=== PATIENT | female | born 1940 | race Caucasian/White ===

== ENCOUNTER 2018-04-08 17:05 | Emergency (ER) | payer OTHER ==
--- NOTE | 2018-04-08 19:52 | RAD REPORT ---
EXAM DESCRIPTION: RAD - Knee Left 2 View - 04/08/2018 7:37 pm CLINICAL HISTORY: Knee pain FINDINGS: A limited two view series was obtained. No fracture or dislocation is seen
--- NOTE | 2018-04-08 19:53 | RAD REPORT ---
EXAM DESCRIPTION: RAD - Knee Right 2 View - 04/08/2018 7:37 pm CLINICAL HISTORY: Knee pain FINDINGS: Limited two view series was obtained. No fracture or dislocation is seen A 2 centimeter area of cortical thickening involves the medial aspect of the distal femoral diaphysis . It is nonspecific but likely is benign. Follow up x-ray in 2 months is recommended to assess stabil ity
--- NOTE | 2018-04-08 20:24 | ER ---
Nurse's Notes [facility] Name: Michelle Garzon Age: 77 yrs Sex: Female : 1940 Arrival Date: 04/08/2018 Time: 17:09 Bed 6 Private MD: Ag Miller R Diagnosis: Abrasion, left knee;Abrasion, right knee Presentation: 04/08 17:25 Presenting complaint: Patient states: "I lost my balance and fell onto my knees". Pt aa5 c/o viv knee pain, denies head injury, denies LOC. 17:26 Transition of care: patient was not received from another setting of care. Onset of aa5 symptoms was April 08, 2018. Risk Assessment: Do you want to hurt yourself or someone else? Patient reports no desire to harm self or others. Initial Sepsis Screen: Does the patient meet any 2 criteria? No. Patient's initial sepsis screen is negative. Does the patient have a suspected source of infection? No. Patient's initial sepsis screen is negative. Care prior to arrival: None. 17:26 Acuity: BRE 4 aa5 17:26 Method Of Arrival: Wheelchair aa5 Historical: - Allergies: 17:27 No Known Allergies; aa5 - PMHx: 17:27 Hyperlipidemia; Hypertension; aa5 - PSHx: 17:27 None; aa5 - Immunization history:: Last tetanus immunization: unknown. - Social history:: Smoking status: Patient uses tobacco products, smokes one-half pack cigarettes per day, Patient/guardian denies using alcohol, street drugs, The patient lives with family. - Ebola Screening: : No symptoms or risks identified at this time. - Family history:: not pertinent. - Hospitalizations: : No recent hospitalization is reported. Screenin:06 Abuse screen: Denies threats or abuse. Denies injuries from another. Nutritional bp screening: No deficits noted. Tuberculosis screening: No symptoms or risk factors identified. Fall Risk Fall in past 12 months (25 points). No secondary diagnosis (0 pts). No IV (0 pts). Ambulatory Aid- None/Bed Rest/Nurse Assist (0 pts). Gait- Normal/Bed Rest/Wheelchair (0 pts) Mental Status- Oriented to own ability (0 pts). Total Albrecht Fall Scale indicates Low Risk Score (25-44 pts). Fall prevention measures have been instituted. Side Rails Up X 2 Placed close to Nursing Station Frequent Obs/Assesments occuring As available Patient and Family Educated on Fall Prevention Program and strategies. Assessment: 19:00 General: Appears in no apparent distress. comfortable, Behavior is calm, cooperative, bp appropriate for age. Pain: Complains of pain in right knee and left knee. Neuro: Level of Consciousness is awake, alert, obeys commands, Oriented to person, place, time, situation, Appropriate for age. Cardiovascular: No deficits noted. Respiratory: Airway is patent Respiratory effort is even, unlabored, Respiratory pattern is regular, symmetrical. GI: No signs and/or symptoms were reported involving the gastrointestinal system. : No signs and/or symptoms were reported regarding the genitourinary system. EENT: No deficits noted. Derm: No deficits noted. Musculoskeletal: Circulation, motion, and sensation intact. Range of motion: intact in all extremities. 20:48 Reassessment: PT D/C HOME VIA W/C, DX WITH KNEE ABRASIONS. bp Vital Signs: 17:27 BP 136 / 48; Pulse 66; Resp 16 S; Temp 97.8(TE); Pulse Ox 98% on R/A; Weight 68.04 kg aa5 (R); Height 5 ft. 4 in. (162.56 cm) (R); Pain 3/10; 19:00 BP 131 / 66; Pulse 76; Resp 16; Pulse Ox 98% ; bp 20:30 BP 137 / 67; Pulse 75; Resp 14; Pulse Ox 98% ; bp 17:27 Body Mass Index 25.75 (68.04 kg, 162.56 cm) aa5 ED Course: 17:09 Patient arrived in ED. mr 17:09 Ag Miller MD is Private Physician. mr 17:26 Triage completed. aa5 17:26 Arm band placed on. aa5 18:59 La Nix MD is Attending Physician. ma2 19:02 Davi Gregg, BLU is Primary Nurse. bp 19:07 Patient has correct armband on for positive identification. Bed in low position. Call bp light in reach. Side rails up X2. 19:32 Knee Left 2 View XRAY In Process Unspecified. EDMS 19:32 Knee Right 2 View XRAY In Process Unspecified. EDMS 20:30 No provider procedures requiring assistance completed. Patient did not have IV access bp during this emergency room visit. Wound care: to abrasion, located on right knee and left knee was cleaned with Hibiclens, dressed with Neosporin. Administered Medications: No medications were administered Outcome: 20:24 Discharge ordered by . blue 20:50 Discharged to home via wheelchair, with family. bp 20:50 Condition: stable 20:50 Discharge instructions given to patient, family, Instructed on discharge instructions, follow up and referral plans. Demonstrated understanding of instructions, follow-up care. 20:50 Patient left the ED. bp Signatures: Dispatcher [employer] EDCO April Bailon Audri, RN RN aa5 Davi Gregg RN RN bp La Nix MD MD ma2
--- NOTE | 2018-04-08 20:24 | EDPHYS ---
Physician Documentation [facility] Name: Michelle Garzon Age: 77 yrs Sex: Female : 1940 Arrival Date: 04/08/2018 Time: 17:09 Bed 6 Private MD: Ag Miller R ED Physician La Nix HPI: 04/08 20:20 This 77 yrs old Female presents to ER via Wheelchair with complaints of Fall ma2 Injury. 20:20 Details of fall: The patient fell from an upright position. Onset: The symptoms/episode ma2 began/occurred suddenly, 2 day(s) ago. Associated injuries: The patient sustained both knees. Severity of symptoms: At their worst the symptoms were mild, in the emergency department the symptoms have improved. The patient has experienced similar episodes in the past. tripped, mechanical fall abd to walk now . Historical: - Allergies: 17:27 No Known Allergies; aa5 - PMHx: 17:27 Hyperlipidemia; Hypertension; aa5 - PSHx: 17:27 None; aa5 - Immunization history:: Last tetanus immunization: unknown. - Social history:: Smoking status: Patient uses tobacco products, smokes one-half pack cigarettes per day, Patient/guardian denies using alcohol, street drugs, The patient lives with family. - Ebola Screening: : No symptoms or risks identified at this time. - Family history:: not pertinent. - Hospitalizations: : No recent hospitalization is reported. ROS: 20:20 Constitutional: Negative for fever, chills, and weight loss, ENT: Negative for injury, ma2 pain, and discharge, Neck: Negative for injury, pain, and swelling, Cardiovascular: Negative for chest pain, palpitations, and edema. 20:20 MS/extremity: Positive for abrasion, pain, tenderness. 20:20 All other systems are negative. Exam: 20:20 Constitutional: This is a well developed, well nourished patient who is awake, alert, ma2 and in no acute distress. Head/Face: Normocephalic, atraumatic. Chest/axilla: Normal chest wall appearance and motion. Nontender with no deformity. No lesions are appreciated. Cardiovascular: Regular rate and rhythm with a normal S1 and S2. No gallops, murmurs, or rubs. Normal PMI, no JVD. No pulse deficits. Respiratory: Lungs have equal breath sounds bilaterally, clear to auscultation and percussion. No rales, rhonchi or wheezes noted. No increased work of breathing, no retractions or nasal flaring. Abdomen/GI: Soft, non-tender, with normal bowel sounds. No distension or tympany. No guarding or rebound. No evidence of tenderness throughout. Back: No spinal tenderness. No costovertebral tenderness. Full range of motion. MS/ Extremity: Pulses equal, no cyanosis. Neurovascular intact. Full, normal range of motion. Neuro: Awake and alert, GCS 15, oriented to person, place, time, and situation. Cranial nerves II-XII grossly intact. Motor strength 5/5 in all extremities. Sensory grossly intact. Cerebellar exam normal. Normal gait. 20:20 Musculoskeletal/extremity: bilateral knee abrasion able to range both and all joints . Vital Signs: 17:27 BP 136 / 48; Pulse 66; Resp 16 S; Temp 97.8(TE); Pulse Ox 98% on R/A; Weight 68.04 kg aa5 (R); Height 5 ft. 4 in. (162.56 cm) (R); Pain 3/10; 19:00 BP 131 / 66; Pulse 76; Resp 16; Pulse Ox 98% ; bp 20:30 BP 137 / 67; Pulse 75; Resp 14; Pulse Ox 98% ; bp 17:27 Body Mass Index 25.75 (68.04 kg, 162.56 cm) aa5 MDM: 19:00 Patient medically screened. ma2 20:20 Differential diagnosis: abrasion, contusion, fracture, laceration, sprain. Data ma2 reviewed: vital signs, nurses notes, lab test result(s). Counseling: I had a detailed discussion with the patient and/or guardian regarding: the historical points, exam findings, and any diagnostic results supporting the discharge/admit diagnosis, the presence of at least one elevated blood pressure reading (>120/80) during this emergency department visit, the need for outpatient follow up. Response to treatment: the patient's symptoms have resolved after treatment. 04/08 19:05 Order name: Knee Left 2 View XRAY; Complete Time: 20:13 bp 04/08 19:05 Order name: Knee Right 2 View XRAY; Complete Time: 20:13 bp 04/08 20:24 Order name: Dressing - Wound: both knees, with antibiotics ointment, clean with ma2 chlorhexidine; Complete Time: 20:48 Administered Medications: No medications were administered Disposition: 04/08/18 20:24 Discharged to Home. Impression: Abrasion, left knee, Abrasion, right knee. - Condition is Stable. - Medication Reconciliation Form, Thank You Letter, Antibiotic Education, Prescription Opioid Use form. - Follow up: Private Physician; When: Tomorrow; Reason: Continuance of care. - Problem is new. - Symptoms are unchanged. Signatures: Dispatcher [employer] EDMS Amber Castellano RN RN aa5 Davi Gregg RN RN bp La Nix MD MD ma2 Corrections: (The following items were deleted from the chart) 20:50 20:24 04/08/2018 20:24 Discharged to Home. Impression: Abrasion, left knee; Abrasion, bp right knee. Condition is Stable. Forms are Medication Reconciliation Form, Thank You Letter, Antibiotic Education, Prescription Opioid Use. Follow up: Private Physician; When: Tomorrow; Reason: Continuance of care. Problem is new. Symptoms are unchanged. ma2
== END 2018-04-08 20:50 | disposition home or self-care (01) ==
LOC: ER 17:05
DX: S80.212A Abrasion, left knee, initial encounter (principal); S80.211A Abrasion, right knee, initial encounter; W18.39XA Other fall on same level, initial encounter; F17.210 Nicotine dependence, cigarettes, uncomplicated
CPT/HCPCS: 99283

== ENCOUNTER 2018-04-24 09:10 | Day surgery (SDC) | payer OTHER ==
--- NOTE | 2018-04-24 12:39 | RAD REPORT ---
EXAM DESCRIPTION: CTSpine Lumbar Wo Con04/24/2018 11:16 am CLINICAL HISTORY: Leg radiculopathy. L1 are compression fracture. COMPARISON: None TECHNIQUE: Computed axial tomography lumbar spine was obtained with coronal and sagittal reconstruct ion. 10 cc 200 Isovue was administered into the thecal sac All CT scans are performed using dose optimization technique as appropriate and may include automated exposure control or mA/KV adjustment according to patient size. FINDINGS: Cement has been placed into a subacute mild compression fracture the L1 vertebral body. Re tropulsion of fracture fragment into the spinal canal is not present. Minimal disc bulge is present L1-2. Small disc bulge is present at L2-3 mildly encroach upon the thecal sac. Mild ligamentum flavum and f acet hypertrophy is seen. Disc bulge and facet hypertrophy is present L3-4 mildly encroach upon the thecal sac. Mild narrowing left neural foramina is seen. Disc bulge, osteophytes, ligamentum flavum and set hypertrophy is present at L4-5. The thecal sac kandis sures 10.5 millimeters. Lateral recesses are narrowed. Moderate narrowing of the neural foramina bila terally is seen. Disc is thinned. Vacuum phenomena is present. Left ryan sacralization L5-S1. Disc bulge with vacuum phenomena is seen. Annular fissure is noted. Di sc bulge with facet hypertrophy is present. Thecal sac is mildly narrowed. Moderate narrowing the mirta ral foramina is noted. 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 Moderate bilateral didi inal stenosis is seen. Spondylosis L5-S1 resulting in moderate bilateral foraminal stenosis.
--- NOTE | 2018-04-24 14:45 | RAD REPORT ---
EXAM DESCRIPTION: RAD - Myelography Lumbar - 04/24/2018 11:18 am CLINICAL HISTORY: Radiculopathy. COMPARISON: None. TECHNIQUE: The risks, benefits and alternatives to the procedure were explained to the patient and i nformed consent obtained. The patient was placed prone into the fluoroscopy suite. The skin and subcutaneous tissues were anest hetized with lidocaine. Under fluoroscopic guidance a 22-gauge spinal needle was advanced into the th ecal sac at the L2-L3 level. 10 mL 200 Isovue was administered into the thecal sac. Frontal, oblique and lateral fluoroscopic spot images of the lumbar spine were obtained. The patient then left for the CT department. The patient experienced no immediate complication. Fluoroscopy time of 1.7 minutes. 5 fluoroscopic spot images were obtained. IMPRESSION: Lumbar myelogram.
== END 2018-04-24 13:57 | disposition home or self-care (01) ==
LOC: DS 09:10
PROVIDERS: ATTEND Specialist
DX: M54.5 Low back pain (principal); M48.062 Spinal stenosis, lumbar region with neurogenic claudication
CPT/HCPCS: 62304; 72131

== ENCOUNTER 2018-10-14 06:54 | Day surgery (SDC) | payer OTHER ==
[2018-10-14] MEDS ORDERED: NA CHLORIDE 0.9% 500 ML ONE (07:25)
[2018-10-14] MEDS ORDERED: LIDOCAINE 2% MPF 5 ML VIAL ONE ×3 (07:25→08:45)
[2018-10-14] MEDS ORDERED: BUPIVACAINE 0.25% PF 10 ML VIAL ONE (07:25)
[2018-10-14] MEDS ORDERED: PHENYLEPHRINE 10% OPTH 5ML ONE (07:25)
[2018-10-14] MEDS ORDERED: CYCLOPENTOLATE 1% OPTH 2 ML ONE (07:25)
[2018-10-14] MEDS ORDERED: TETRACAINE HCL 0.5% 2ML OPTH ONE (07:26)
[2018-10-14] MEDS ORDERED: CYCLOPENTOLATE 1% OPTH 2 ML OPTH ONE ×2 (07:39→07:44)
[2018-10-14] MEDS ORDERED: PHENYLEPHRINE 10% OPTH 5ML OPTH ONE ×2 (07:39→07:44)
[2018-10-14] MEDS ORDERED: NS 0.9% VIAL 10 ML ONE (08:11)
[2018-10-14] MEDS: EPINEPHRINE/PF 1 MG/ML AMP ONE ×2 (08:12→08:24)
[2018-10-14] MEDS: BALANCED SALT IRRIG PLAIN 500 ML BTL IRR ONE ×2 (08:12→08:24)
[2018-10-14] MEDS: DUOVISC 1 KIT OPTH ONE ×2 (08:12→08:24)
[2018-10-14] MEDS: MOXIFLOXACIN HCL 10 DROPS/ML **OR USE OPTH ONE ×2 (08:12→08:24)
[2018-10-14] MEDS ORDERED: PROPOFOL 200 MG/20 ML VIAL IV ONE (08:27)
[2018-10-14] MEDS ORDERED: Phenylephrine HCl 10 MG/ML 1 ML VIAL ONE (09:04)
--- NOTE | 2018-10-14 09:12 | P.BOP ---
Preoperative diagnosis: Nuclear sclerotic cataract OD Postoperative diagnosis: Same Primary procedure: Phacoemulsification with IOL OD Estimated blood loss: None Anesthesia: Local (Subtenon's infusion with anesthesia for cataract surgery) Complications: None Implants: SN60WF +23.0 Transferred to: Other (Day surgery) Condition: Good
--- NOTE | 2018-10-14 21:01 | OP ---
Date of Procedure: 10/14/2018 Surgeon: Lucy Cerna MD Preoperative Diagnosis: Nuclear sclerotic cataract OD (right eye). Operation Performed: Phacoemulsification with intraocular lens implant, right eye. Anesthesia: 1. Yoandy Castillo CRNA. 2. Mark Ag MD. Anesthesia per cataract surgery. Complications: None. Description Of Procedure: In day surgery, the patient was prepped with Betadine and draped. A conjunctival incision was made in the inferior nasal quadrant with Sam scissors. A sub-Tenon block consisting of a 1:1 mixture of 2% Xylocaine and 0.25% bupivacaine was placed through the conjunctival incision with a blunt cannula. A [place] balloon was placed over the eye and the patient was transferred to the operating room. In the operating room the patient was prepped and draped in the usual sterile fashion for ophthalmic surgery. A lid speculum was placed in the right eye. Two paracentesis sites were made superiorly and inferiorly in the limbal cornea. Viscoat was placed in the anterior chamber and a crescent blade was used to make a corneal groove and tunnel, and a keratome was used to enter the anterior chamber. Provisc was placed in the anterior chamber and a 360 degree capsulotomy was performed with a cystitome. The lens was hydrodissected with BSS and rotated freely. The lens was removed with a stop and chop technique. An 11.56 phaco CDE was used to remove the lens. Residual cortex was removed with the irrigation and aspiration. Provisc was placed in the capsular bag. An SN60WF +23.0 lens was placed in the capsular bag without complications. Irrigation and aspiration was used to remove residual viscoelastic. The paracentesis sites were hydrated with BSS. The wound and paracentesis sites were inspected and found to be watertight. Vigamox 0.07 cc was placed intracamerally at the end of the procedure. The eye was irrigated with balanced salt solution. The eye was patched with a soft cotton patch and Forbes metal shield. The patient was returned to day surgery in good condition. Comments: The lens was slightly loose. Discharge Instructions: Ms. Garzon is discharged to home in good condition and is to follow up with Dr. Cerna in the morning. MARCIAL/LEANNE Voice ID: [id number] Report ID: [id number] MTDD
== END 2018-10-14 09:30 | disposition home or self-care (01) ==
LOC: OR 06:54
PROVIDERS: ATTEND Ophthalmology Retina Specialist
PROC: 08RJ3JZ Replacement of Right Lens with Synthetic Substitute, Percutaneous Approach (ICD-10-PCS; principal; 2018-10-14 08:30)
DX: H25.11 Age-related nuclear cataract, right eye (principal); E78.00 Pure hypercholesterolemia, unspecified; M06.9 Rheumatoid arthritis, unspecified; Z79.899 Other long term (current) drug therapy; Z79.82 Long term (current) use of aspirin
CPT/HCPCS: 66984; J2704; J0171; J2370

== ENCOUNTER 2020-01-07 09:07 | Day surgery (SDC) | payer OTHER ==
[2020-01-06 11:25] LABS: Absolute Lymphocytes (CBC) 1.4 K/uL (0.7-4.9); Basophils % 0.8 % (0-1.3); Lymphocytes % 19.8 % (15.3-44.8); MPV 9.1 fL (7.6-11.3); RBC Red Blood Cell Count 4.48 M/uL (3.86-4.86)
[2020-01-06 11:43] LABS: Potassium 4.2 mmol/L (3.5-5.1)
[2020-01-07] MEDS ORDERED: Ringers Lactate 1,000 ML IV ONE ×2 (09:19→10:42)
[2020-01-07] MEDS: CEFAZOLIN/SWI 1gm 1 GM/10 ML SYR ONE ×2 (09:43→10:00)
[2020-01-07] MEDS ORDERED: MIDAZOLAM HCL 2 MG/2 ML INJ ONE (09:45)
[2020-01-07] MEDS ORDERED: propofoL 200 MG/20 ML VIAL IV ONE (09:45)
[2020-01-07] MEDS ORDERED: LIDOCAINE 2% MPF 5 ML VIAL ONE (09:45)
[2020-01-07] MEDS ORDERED: FENTANYL CITR 100 MCG/2 ML ONE (10:06)
[2020-01-07] MEDS ORDERED: dexAMETHasone 10 MG/ML VIAL ONE (10:10)
[2020-01-07] MEDS ORDERED: EPHEDRINE SULF 50 MG/ML VIAL ONE (10:13)
[2020-01-07 11:35] VITALS: BP 94/51; TEMP 97.4; O2SAT 95
[2020-01-07] MEDS ORDERED: TRAMADOL 37.5mg/APAP 325mg PER TAB ONE (11:35)
--- NOTE | 2020-01-07 13:50 | OP ---
Date of Procedure: 01/07/2020 Surgeon: Niranjan Pool MD Preoperative Diagnosis: Inflamed cyst on left axilla. Postoperative Diagnosis: Inflamed cyst on left axilla. Procedure: Wide excision of left axillary mass 7 x 4 cm with layered closure. Estimated Blood Loss: Minimal. Specimen: C and S from the fluid inside the cyst and the cyst itself. Findings: As above. Anesthesia: General. Complications: None. Drains: quarter-inch [place]. Patient tolerated the procedure in stable condition, taken to Recovery in good general condition. Procedure In Detail: Patient was brought to the OR and placed in supine position. General anesthesi a began. Patient was prepped and draped in the usual sterile fashion, then Marcaine 0.5% was infiltr ated locally for postop pain control. 15 blade was used to make approximately a 7 x 4 cm incision to excise the entire cyst that was bulging out of the skin surface and with normal skin margins. The i ncision was 7 x 4 cm. When down to the deep subcutaneous tissue, entire cyst excised in 1 piece. Th en opened side table and cultures were done on the purulence material inside the cyst. Then wound wa s irrigated, bleeding controlled with cautery. Flaps created and then a Kevin drain quarter-inch p laced and secured with 3-0 nylon. 2-0 chromic used to approximate the subcutaneous tissue and 3-0 ny corine used to loosely close the skin. Sterile dressing applied. Patient was awakened and taken to the recovery in good general condition. Discharge Note: Patient will go to Day Surgery and home when stable. Disposition: Home. Condition: Stable. Discharge Instructions: Resume home medications and diet. Activity as tolerated. No heavy lifting. Remove outer dressing in 2 days. Shower. Dry gauze to wound daily. Follow up in my office in 1 w tul[place]. Call for appointment. Ultracet 1 tablet p.o. q.4 p.r.n. pain. The patient has antibiotics at home. /MODL Voice ID: [id number] Report ID: [id number]
== END 2020-01-07 11:50 | disposition home or self-care (01) ==
LOC: OR 09:07
PROVIDERS: ATTEND Surgery
PROC: 0HBCXZZ Excision of Left Upper Arm Skin, External Approach (ICD-10-PCS; principal; 2020-01-07 10:00)
DX: L72.0 Epidermal cyst (principal); L03.112 Cellulitis of left axilla; M06.9 Rheumatoid arthritis, unspecified; I10 Essential (primary) hypertension; Z79.82 Long term (current) use of aspirin; Z79.899 Other long term (current) drug therapy
CPT/HCPCS: 11406; 12032; 87070; 85025; 80048; 36415; 87205; 88304; 87075; U0002; J2704; J2250; J3010; J1100; J0690; J7120 ×2

== ENCOUNTER 2022-08-13 15:24 | Emergency (ER) | payer OTHER ==
--- OUTSIDE RECORDS SUMMARY | 2022-08-13 15:29 | XMS REPORT | Continuity of Care Document ---
:1940 Author Organization [facility] [place] [facility] t Address [address] [place] [address] Care Team Providers Name Role Phone JEFFY HERNANDEZ Primary Care Physician Unavailable AMBREEN ORTIZ Attending Clinician Unavailable Ambreen Ortiz MD Attending Clinician Doctor Unassigned, Kinder Attending Clinician Unavailable MINNIE DOWLING Attending Clinician Unavailable RADIOLOGY Attending Clinician Unavailable Radiology Attending Clinician Unavailable JUSTA FOSTER Attending Clinician Unavailable Radha Vinson OT Attending Clinician Unavailable Justa Foster MD Attending Clinician JEFFY HERNANDEZ Admitting Clinician Unavailable Payers Payer Name Policy Type Policy Number Effective Date Expiration Date Jessica cruz MEDICARE PART A [id number] 2006 \T\ B 00:00:00 Problems Condition Condition Condition Status Onset Resolution Last Treating Co mments Source Name Details Category Date Date Treatment Clinician Date 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 Uni vers of right of right 08-05 ity [place] subcl[place]cl[place] artery artery 00 [facility] Branch Bilateral Bilateral Disease Active 2021-07 Uni vers carotid carotid 1- ity of artery artery 00:00: [place] stenosis stenosis 00 Medica l Branch Cigarette Cigarette Disease Active Uni vers smoker smoker 8 ity of 00:00: [place] 00 Medical Branch Bruit of Bruit of Disease Active Unive rs right right 8- ity of carotid carotid 00:00: [place] artery artery 00 Medical Branch PAD PAD Disease Active Univers (periphera (periphera 02-16 it y of l artery l artery 00:00: [place] disease) disease) 00 Medica l Branch Murmur Murmur Disease Active Univers 8-04 ity of 00:00: [place] 00 Medical Branch 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 00 Medica l Branch 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 8-04 it y of artery artery 00:00: [place] occlusion occlusion 00 Medi paul Branch PAC PAC Disease Active Univers (premature (premature 8-04 it y of atrial atrial 00:00: [place] contractio contractio 00 Me dical n) n) Branch Coronary Coronary Disease Active Unive rs artery artery 8-04 ity of calcificat calcificat 00:[place] ion ion 00 [facility] Unequal Unequal Disease Active Univers blood blood 8-04 ity of pressure pressure 00:00: [place] in upper in upper 00 Medica l extremitie extremitie Br anch s s Decreased Decreased Disease Active Uni vers range of range of 7-11 ity of motion of motion of 00:[place] finger of finger of 00 Medi paul right hand right hand Br anch Allergies, Adverse Reactions, Alerts Allergy Allergy Status Severity Reaction(s) Onset Inactive Treating Comm ents Source Name Type Date Date Clinician NO KNOWN Drug Active [facility] ALLERGIE Class ity of [facility] Social History Social Habit Start Date Stop Date Quantity Comments Source History of Cigarette Smoker Universi ty of tobacco use [facility] Exposure to 2022-05-26 2022-06-05 Not sure [facility] SARS-CoV-2 00:00:00 12:46:00 [facility] (event) Branch Tobacco use and 2022-02-16 2022-02-16 Smokeless tobacco Un iversity of exposure 00:00:00 00:00:00 non-user [facility] Sex Ass[birth year] At [birth year] Universit y of 00:00:00 00:00:00 [facility] Smoking Status Start Date Stop Date Source Smokes tobacco daily 2022-02-16 00:00:00 Univers ity of [facility] Medications Ordered Filled Start Stop Current Ordering Indication Dosage Frequency Signature Comments Components Source Medication Medication Date Date Medication? Clinician (SIG) Name Name fernanda Yes [id number] 40mg Take 1 Univers n 40 mg 9-26 tablet by ity of tablet 00:00: mouth at [place] 00 bedtime. Medical Branch metoprolol Yes [id number] 25mg Take 1 Univers succinate 9-26 tablet by ity o f XL 25 mg 24 00:00: [place] hr tablet 00 the morning. Branch atorvastati Yes [id number] 40mg Take 1 Univers n 40 mg 9-26 tablet by ity of tablet 00:00: mouth at [place] 00 bedtime. Medical Branch metoprolol Yes [id number] 25mg Take 1 Univers succinate 9-26 tablet by ity o f XL 25 mg 24 00:00: [place] hr tablet the morning. Branch atorvastati Yes [id number] 40mg Take 1 Univers n 40 mg 9-26 tablet by ity of tablet 00:00: mouth at [place] 00 bedtime. Medical Branch metoprolol Yes [id number] 25mg Take 1 Univers succinate 9-26 tablet by ity o f XL 25 mg 24 00:00: [place] hr tablet the morning. Branch atorvastati Yes [id number] 40mg Take 1 Univers n 40 mg 9-26 tablet by ity of tablet 00:00: mouth at [place] 00 bedtime. Medical Branch metoprolol Yes [id number] 25mg Take 1 Univers succinate 9-26 tablet by ity o f XL 25 mg 24 00:00: [place] hr tablet the morning. Branch atorvastati Yes [id number] 40mg Take 1 Univers n 40 mg 9-26 tablet by ity of tablet 00:00: mouth at [place] 00 bedtime. Medical Branch metoprolol Yes [id number] 25mg Take 1 Univers succinate 9-26 tablet by ity o f XL 25 mg 24 00:00: [place] hr tablet the morning. Branch atorvastati Yes [id number] 40mg Take 1 Univers n 40 mg 9-26 tablet by ity of tablet 00:00: mouth at [place] 00 bedtime. Medical Branch metoprolol Yes [id number] 25mg Take 1 Univers succinate 9-26 tablet by ity o f XL 25 mg 24 00:00: [place] hr tablet 00 the Medical morning. Branch aspirin 81 2021-0 Yes [id number] 81mg Take 1 Univers mg chewable 9-20 tablet by ity of tablet 00:00: mouth in [place] 00 the Medical morning. Branch aspirin 81 2021-0 Yes [id number] 81mg Take 1 Univers mg chewable 9-20 tablet by ity of tablet 00:00: mouth in [place] 00 the Medical morning. Branch aspirin 81 2021-0 Yes [id number] 81mg Take 1 Univers mg chewable 9-20 tablet by ity of tablet 00:00: mouth in [place] 00 the Medical morning. Branch aspirin 81 2021-0 Yes [id number] 81mg Take 1 Univers mg chewable 9-20 tablet by ity of tablet 00:00: mouth in [place] 00 the Medical morning. Branch aspirin 81 2021-0 Yes [id number] 81mg Take 1 Univers mg chewable 9-20 tablet by ity of tablet 00:00: mouth in [place] 00 the Medical morning. Branch aspirin 81 0 Yes [id number] 81mg Take 1 Univers mg chewable 9-20 tablet by ity of tablet 00:00: mouth in [place] 00 the Medical morning. Branch aspirin 81 2021-0 Yes [id number] 81mg Take 1 Univers mg chewable 9-20 tablet by ity of tablet 00:00: mouth in [place] 00 the Medical morning. Branch metoprolol 2021- Yes [id number] 25mg Take 1 Univers succinate 9-20 tablet by ity o f XL 25 mg 24 00:00: [place] hr tablet 00 the Medical morning. Branch atorvastati Yes [id number] 40mg Take 1 Univers n 40 mg 9-20 tablet by ity of tablet 00:00: mouth at [place] [address] bedtime. Medical Branch metoprolol 2021-2021- No [id number] 25mg Take 1 Univers succinate 9-20 - tablet by ity of XL 25 mg 24 00:00: 00:00 [place] hr tablet 00 :00 the Medical morning. Branch atorvastati 2021-2021- No [id number] 40mg Take 1 Univers n 40 mg 9-20 - tablet by ity of tablet 00:00: 00:00 mouth at [place] 00 :00 bedtime. Medical Branch SIMVASTATIN 2022-0 2- No Take by Un melissa ORAL 02-16 mouth. ity of 15:10: 00:00 [place] 54 :00 Medical Branch Dose 2022-0 No Unknown 8 00:00: 00 Dose 2022-0 No Unknown 8 00:00: 00 Dose 2022-0 No Unknown 02-14 00:00: 00 Dose 2022-0 No Unknown 02-14 00:00: 00 LOSARTAN 2022-0 No POTASSIUM 7-25 25MG TAB 00:00: 00 LOSARTAN 2022-0 No POTASSIUM 7-25 25MG TAB 00:00: 00 &lt 2022-0 No 25 7- 00:00: 00 &lt 2022-0 No 25 7 00:00: 00 &lt 2022-0 No 20 7- 00:00: 00 &lt 2022-0 No 20 7- 00:00: 00 TAKE 1 2-0 No 20 TABLET BY 7-20 MOUTH EVERY 00:00: DAY 00 TAKE 1 2-0 No 20 TABLET BY 7-20 MOUTH EVERY 00:00: DAY 00 8 TABLETS 2-0 No 25 ORALLY ONCE - A WEEK 90 00:00: DAYS 00 8 TABLETS 2022-0 No 25 ORALLY ONCE 7- A WEEK 90 00:00: DAYS 00 Dose 2022-0 No Unknown 7- 00:00: 00 &lt 2022-0 No 20 7- 00:00: 00 &lt 2022-0 No 7- 00:00: 00 &lt 2022-0 No 25 7- 00:00: 00 Dose 2022-0 No Unknown 7- 00:00: 00 Dose 2022-0 No 25 Unknown 7- 00:00: 00 &lt 2022-0 No 20 7- 00:00: 00 TAKE 1 2-0 No 20 TABLET BY 7- MOUTH EVERY 00:00: DAY 00 Dose 2022-0 No Unknown 7- 00:00: 00 &lt 2022-0 No 20 7- 00:00: 00 &lt 2022-0 No 7-06 00:00: 00 &lt 2022-0 No 25 7- 00:00: 00 Dose 2022-0 No Unknown 7- 00:00: 00 Dose 2022-0 No 25 Unknown 7- 00:00: 00 &lt 2022-0 No 20 7- 00:00: 00 TAKE 1 2022-0 No 20 TABLET BY 7-06 MOUTH EVERY 00:00: DAY 00 Dose 2022-0 No Unknown 7- 00:00: 00 &lt 2022-0 No 20 7- 00:00: 00 &lt 2022-0 No 7- 00:00: 00 &lt 2022-0 No 25 7- 00:00: 00 Dose 2022-0 No Unknown 7- 00:00: 00 Dose 2022-0 No 25 Unknown - 00:00: 00 &lt 2022-0 No 20 7- 00:00: 00 TAKE 1 2-0 No 20 TABLET BY 7- MOUTH EVERY 00:00: DAY 00 &lt 2022-0 No 6-21 00:00: 00 Dose 2022-0 No Unknown 6-21 00:00: 00 Dose 2022-0 No Unknown 6-21 00:00: 00 Dose 2022-0 No Unknown 6-21 00:00: 00 &lt 2022-0 No 6-21 00:00: 00 Dose 2022-0 No Unknown 6-21 00:00: 00 Dose 2022-0 No Unknown 6-21 00:00: 00 Dose 2022-0 No Unknown 6-21 00:00: 00 &lt 2022-0 No 6-21 00:00: 00 Dose 2022-0 No Unknown 6-21 00:00: 00 Dose 2022-0 No Unknown 6-21 00:00: 00 Dose 2022-0 No Unknown 6-21 00:00: 00 simvastatin 2022-0 Yes 20mg Take 20 mg Univers 20 mg 6-20 by mouth ity of tablet 00:00: in the [place] 00 morning. Medical Branch simvastatin 2022-0 2022- No 20mg Take 20 mg Univers 20 mg 6-20 09-20 by mouth ity of tablet 00:00: 00:00 in the [place] 00 :00 morning. Medical Branch TAKE 8 2021-0 No TABLETS BY 6-17 MOUTH EVERY 00:00: WEEK 00 TAKE 1 2021-0 No TABLET BY 6-17 MOUTH EVERY 00:00: DAY 00 TAKE 8 2022-0 No TABLETS BY 6-17 MOUTH EVERY 00:00: WEEK 00 TAKE 1 2022-0 No TABLET BY 6-17 MOUTH EVERY 00:00: DAY 00 TAKE 8 2022-0 No TABLETS BY 6-17 MOUTH EVERY 00:00: WEEK 00 TAKE 1 2022-0 No TABLET BY 6-17 MOUTH EVERY 00:00: DAY 00 Dose 2022-0 No Unknown 6-09 00:00: 00 TAKE 1 2022-0 No TABLET BY 6-09 MOUTH EVERY 00:00: DAY 00 Dose 2022-0 No Unknown 6- 00:00: 00 Dose 2022-0 No Unknown 6- 00:00: 00 TAKE 1 2022-0 No TABLET BY 6-09 MOUTH EVERY 00:00: DAY 00 Dose 2022-0 No Unknown 6- 00:00: 00 Dose 2022-0 No Unknown 6-09 00:00: 00 TAKE 1 2022-0 No TABLET BY 6-09 MOUTH EVERY 00:00: DAY 00 Dose 2022-0 No Unknown 6-09 00:00: 00 Dose 2022-0 No Unknown 6-06 00:00: 00 TAKE 1 2022-0 No TABLET BY 6-06 MOUTH EVERY 00:00: DAY 00 Dose 2022-0 No Unknown 6-06 00:00: 00 TAKE 1 2022-0 No TABLET BY 6-06 MOUTH EVERY 00:00: DAY 00 Dose 2022-0 No Unknown 6-06 00:00: 00 TAKE 1 2022-0 No TABLET BY 6-06 MOUTH EVERY 00:00: DAY 00 Dose 2022-0 No Unknown 5-30 00:00: 00 Dose 2022-0 No Unknown 5-30 00:00: 00 Dose 2022-0 No Unknown 5-30 00:00: 00 Dose 2022-0 No Unknown 5-26 00:00: 00 Dose 2022-0 No Unknown 5-26 00:00: 00 Dose 2022-0 No Unknown 5-26 00:00: 00 Dose 2022-0 No Unknown 5-25 00:00: 00 Dose 2022-0 No Unknown 5-25 00:00: 00 Dose 2022-0 No Unknown 5-25 00:00: 00 Xatmep 2.5 2022-0 No 8mg/mL mg/mL oral 5-17 solution 00:00: 00 Dose 2022-0 No Unknown 5-17 00:00: 00 Dose 2022-0 No Unknown 5-17 00:00: 00 Dose 2022-0 No Unknown 5-17 00:00: 00 Dose 2022-0 No Unknown 5-17 00:00: 00 Xatmep 2.5 2022-0 No 8mg/mL mg/mL oral 5-17 solution 00:00: 00 Dose 2022-0 No Unknown 5-17 00:00: 00 Dose 2022-0 No Unknown 5-17 00:00: 00 Dose 2022-0 No Unknown 5-17 00:00: 00 Dose 2022-0 No Unknown 5-17 00:00: 00 Xatmep 2.5 2-0 No 8mg/mL mg/mL oral 5-17 solution 00:00: 00 Dose 2-0 No Unknown 5-17 00:00: 00 Dose 2-0 No Unknown 5-17 00:00: 00 Dose 2-0 No Unknown 5-17 00:00: 00 Dose 2-0 No Unknown 5-17 00:00: 00 methotrexat 2022-0 Yes GIVE 8 Univ ers e 2.5 mg 5-08 TABLETS BY ity o f tablet 00:00: MOUTH ONCE Medical Branch methotrexat 2022-0 Yes GIVE 8 Univ ers e 2.5 mg 5-08 TABLETS BY ity o f tablet 00:00: MOUTH ONCE Medical Branch methotrexat 2022-0 Yes GIVE 8 Univ ers e 2.5 mg 5-08 TABLETS BY ity o f tablet 00:00: MOUTH ONCE A Medical Branch methotrexat 2022-0 Yes GIVE 8 Univ ers e 2.5 mg 5-08 TABLETS BY ity o f tablet 00:00: MOUTH ONCE Medical Branch methotrexat 2022-0 Yes GIVE 8 Univ ers e 2.5 mg 5-08 TABLETS BY ity o f tablet 00:00: MOUTH ONCE A Medical Branch methotrexat 2022-0 Yes GIVE 8 Univ ers e 2.5 mg 5-08 TABLETS BY ity o f tablet 00:00: MOUTH ONCE A Medical Branch methotrexat 2022-0 Yes GIVE 8 Univ ers e 2.5 mg 5-08 TABLETS BY ity o f tablet 00:00: MOUTH ONCE A [facility] methotrexat 2021-0 Yes GIVE 8 Univ ers e 2.5 mg 5-08 TABLETS BY ity o f tablet 00:00: MOUTH ONCE [place] [facility] losartan 25 2-0 No 1mg mg tablet 3-22 00:00: 00 simvastatin 2-0 No 1mg 20 mg 3-22 tablet 00:00: 00 Dose 2022-0 No Unknown 3-22 00:00: 00 Dose 2022-0 No Unknown 3-22 00:00: 00 Dose 2022-0 No Unknown 3-22 00:00: 00 Dose 2-0 No Unknown 3-22 00:00: 00 Dose 2-0 No Unknown 3-22 00:00: 00 Dose 2-0 No Unknown 3-22 00:00: 00 Dose 2-0 No Unknown 3-22 00:00: 00 losartan 25 2-0 No 1mg mg tablet 3-22 00:00: 00 simvastatin 2-0 No 1mg 20 mg 3-22 tablet 00:00: 00 Dose 2-0 No Unknown 3-22 00:00: 00 losartan 25 2-0 No 1mg mg tablet 3-22 00:00: 00 simvastatin 2-0 No 1mg 20 mg 3-22 tablet 00:00: 00 Dose 2-0 No Unknown 3-22 00:00: 00 Dose 2-0 No Unknown 3-22 00:00: 00 Dose 2-0 No Unknown 3-22 00:00: 00 Dose 2022-0 No Unknown 3-22 00:00: 00 Dose 2022-0 No Unknown 3-22 00:00: 00 Dose 2022-0 No Unknown 3-22 00:00: 00 Dose 2022-0 No Unknown 3-22 00:00: 00 Dose 2022-0 No Unknown 3-22 00:00: 00 Dose 2-0 No Unknown 3-22 00:00: 00 Dose 2-0 No Unknown 3-22 00:00: 00 Dose 2-0 No Unknown 3-22 00:00: 00 Dose 2022-0 No Unknown 3-22 00:00: 00 Dose 2022-0 No Unknown 3-22 00:00: 00 Dose 2-0 No Unknown 2-28 00:00: 00 Dose 2022-0 No Unknown 2-28 00:00: 00 Dose 2022-0 No Unknown 2-28 00:00: 00 Dose 2022-0 No Unknown 2-28 00:00: 00 Dose 2022-0 No Unknown 2-28 00:00: 00 Dose 2022-0 No Unknown 2-28 00:00: 00 Dose 2022-0 No Unknown 2-28 00:00: 00 Dose 2022-0 No Unknown 2-28 00:00: 00 Dose 2022-0 No Unknown 2-28 00:00: 00 Dose 2022-0 No Unknown 2-28 00:00: 00 Dose 2022-0 No Unknown 2-28 00:00: 00 Dose 2022-0 No Unknown 2-28 00:00: 00 Dose 2022-0 No Unknown 2-28 00:00: 00 Dose 2022-0 No Unknown 2-28 00:00: 00 Dose 2022-0 No Unknown 2-28 00:00: 00 Dose 2022-0 No Unknown 2-15 00:00: 00 Dose 2022-0 No Unknown 2-15 00:00: 00 Dose 2022-0 No Unknown 2-15 00:00: 00 Dose 2022-0 No Unknown 2-15 00:00: 00 Dose 2022-0 No Unknown 2-15 00:00: 00 Dose 2022-0 No Unknown 2-15 00:00: 00 Dose 2021-0 No Unknown 8-19 00:00: 00 Dose 2021-0 No Unknown 8-19 00:00: 00 Dose 2021-0 No Unknown 8-19 00:00: 00 Dose 2021-0 No Unknown 8-19 00:00: 00 Dose 2021-0 No Unknown 8-19 00:00: 00 Dose 2021-0 No Unknown 8-19 00:00: 00 Dose 2021-0 No Unknown 5-12 00:00: 00 Dose 2021-0 No Unknown 5-12 00:00: 00 Dose 2021-0 No Unknown 5-12 00:00: 00 losartan 25 2021-0 No 1mg mg tablet 2-19 00:00: 00 simvastatin 2021-0 No 1mg 20 mg 2-19 tablet 00:00: 00 losartan 25 2021-0 No 1mg mg tablet 2-19 00:00: 00 simvastatin 2021-0 No 1mg 20 mg 2-19 tablet 00:00: 00 losartan 25 2021-0 No 1mg mg tablet 2-19 00:00: 00 simvastatin 2021-0 No 1mg 20 mg 2-19 tablet 00:00: 00 cefuroxime 2020-0 No 1mg axetil 500 6-22 mg tablet 00:00: 00 losartan 25 2020-0 No 1mg mg tablet 6-22 00:00: 00 simvastatin 2020-0 No 1mg 20 mg 6-22 tablet 00:00: 00 cefuroxime 2020-0 No 1mg axetil 500 6-22 mg tablet 00:00: 00 losartan 25 2020-0 No 1mg mg tablet 6-22 00:00: 00 simvastatin 2020-0 No 1mg 20 mg 6-22 tablet 00:00: 00 cefuroxime 2020-0 No 1mg axetil 500 6-22 mg tablet 00:00: 00 losartan 25 2020-0 No 1mg mg tablet 6-22 00:00: 00 simvastatin 2020-0 No 1mg 20 mg 6-22 tablet 00:00: 00 losartan 25 2020-0 No 1mg mg tablet 5-26 00:00: 00 losartan 25 2020-0 No 1mg mg tablet 5-26 00:00: 00 losartan 25 2020-0 No 1mg mg tablet 5-26 00:00: 00 simvastatin 2020-0 No 1mg 20 mg 2-26 tablet 00:00: 00 aspirin 81 2020-0 No 1mg mg 2-26 tablet,júnior 00:00: yed release 00 simvastatin 2020-0 No 1mg 20 mg 2-26 tablet 00:00: 00 losartan 25 2020-0 No 1mg mg tablet 2-26 00:00: 00 simvastatin 2020-0 No 1mg 20 mg 2-26 tablet 00:00: 00 aspirin 81 2020-0 No 1mg mg 2-26 tablet,júnior 00:00: yed release 00 simvastatin 2020-0 No 1mg 20 mg 2-26 tablet 00:00: 00 losartan 25 2020-0 No 1mg mg tablet 2-26 00:00: 00 simvastatin 2020-0 No 1mg 20 mg 2-26 tablet 00:00: 00 aspirin 81 2020-0 No 1mg mg 2-26 tablet,júnior 00:00: yed release 00 simvastatin 2020-0 No 1mg 20 mg 2-26 tablet 00:00: 00 losartan 25 2020-0 No 1mg mg tablet 2-26 00:00: 00 Immunizations Ordered Filled Immunization Date Status Comments [facility] e Immunization Name Name influenza, seasonal 2022-04-19 Completed vaccine, 00:00:00 quadrivalent, adjuvanted, .5mL dose, preservative-free influenza, seasonal 2022-04-19 Completed vaccine, 00:00:00 quadrivalent, adjuvanted, .5mL dose, preservative-free influenza, 2021-09-12 Completed high-dose, 00:00:00 quadrivalent influenza, 2021-09-12 Completed high-dose, 00:00:00 quadrivalent influenza, 2021-09-12 Completed high-dose, 00:00:00 quadrivalent SARS-COV-2 COVID-19 2020-09-18 Completed Unive rsity of MODERNA 12+ YRS 00:00:00 [place] Med ical VACCINE Branch SARS-COV-2 COVID-19 2020-09-18 Completed Unive rsity of MODERNA 12+ YRS 00:00:00 [place] Med ical VACCINE Branch SARS-COV-2 COVID-19 2020-09-18 Completed Unive rsity of MODERNA 12+ YRS 00:00:00 [place] Med ical VACCINE Branch SARS-COV-2 COVID-19 2020-09-18 Completed Unive rsity of MODERNA 12+ YRS 00:00:00 [place] Med ical VACCINE Branch SARS-COV-2 COVID-19 2020-09-18 Completed Unive rsity of MODERNA 12+ YRS 00:00:00 [place] Med ical VACCINE Branch SARS-COV-2 COVID-19 2020-09-18 Completed Unive rsity of MODERNA 12+ YRS 00:00:00 [place] Med ical VACCINE Branch SARS-COV-2 COVID-19 2020-09-18 Completed Unive rsity of MODERNA 12+ YRS 00:00:00 [place] Med ical VACCINE Branch SARS-COV-2 COVID-19 2020-09-18 Completed Unive rsity of MODERNA 12+ YRS 00:00:00 [place] Med ical VACCINE Branch SARS-COV-2 COVID-19 2020-08-21 Completed Unive rsity of MODERNA 12+ YRS 00:00:00 [place] Med ical VACCINE Branch SARS-COV-2 COVID-19 2020-08-21 Completed Unive rsity of MODERNA 12+ YRS 00:00:00 [place] Med ical VACCINE Branch SARS-COV-2 COVID-19 2020-08-21 Completed Unive rsity of MODERNA 12+ YRS 00:00:00 [place] Med ical VACCINE Branch SARS-COV-2 COVID-19 2020-08-21 Completed Unive rsity of MODERNA 12+ YRS 00:00:00 [place] Med ical VACCINE Branch SARS-COV-2 COVID-19 2020-08-21 Completed Unive rsity of MODERNA 12+ YRS 00:00:00 [place] Med ical VACCINE Branch SARS-COV-2 COVID-19 2020-08-21 Completed Unive rsity of MODERNA 12+ YRS 00:00:00 [place] Med ical VACCINE Branch SARS-COV-2 COVID-19 2020-08-21 Completed Unive rsity of MODERNA 12+ YRS 00:00:00 [place] Med ical VACCINE Branch SARS-COV-2 COVID-19 2020-08-21 Completed Unive rsity of MODERNA 12+ YRS 00:00:00 [place] [facility] ical VACCINE Branch Vital Signs Vital Name Observation Time Observation Value Comments Source Systolic blood 2022-06-05 19:04:00 108 mm[Hg] Univer sity of pressure [facility] Diastolic blood 2022-06-05 19:04:00 66 mm[Hg] Unive rsity of pressure [facility] Heart rate 2022-06-05 19:04:00 99 /min [facility] Body temperature 2022-06-05 19:04:00 36.67 [facility] Respiratory rate 2022-06-05 19:04:00 16 /[facility] Body weight 2022-06-05 19:04:00 48.036 kg [facility] BMI 2022-06-05 19:04:00 18.18 kg/m2 [facility] Oxygen saturation in 2022-06-05 19:04:00 96 /min [facility] Arterial blood by [facility] Pulse oximetry Branch Systolic blood 2022-02-16 20:56:00 155 mm[Hg] Univer sity of pressure [facility] Diastolic blood 2022-02-16 20:56:00 75 mm[Hg] Unive rsity of pressure [facility] Heart rate 2022-02-16 20:56:00 63 /min Universi ty of [facility] Oxygen saturation in 2022-02-16 20:56:00 93 /min [facility] Arterial blood by [facility] Pulse oximetry Branch Respiratory rate 2022-02-16 20:16:00 16 /min [facility] Body temperature 2022-02-16 20:15:00 36.61 Ch[facility] Body weight 2022-02-16 20:15:00 50.803 kg Universi ty of [facility] BP Systolic 2022-07-26 11:00:00 124 mm[Hg] BP Diastolic 2022-07-26 11:00:00 67 mm[Hg] Weight Measured 2022-07-26 11:00:00 Height Measured 2022-07-26 11:00:00 64.60 inches Body Temperature 2022-07-26 11:00:00 98.00 degrees Heart Rate 2022-07-26 11:00:00 87.00 /min Respiratory Rate 2022-07-26 11:00:00 BP Systolic 2022-04-19 11:53:00 104 mm[Hg] BP Diastolic 2022-04-19 11:53:00 69 mm[Hg] Weight Measured 2022-04-19 11:53:00 107.40 pounds Height Measured 2022-04-19 11:53:00 64.60 inches Body Temperature 2022-04-19 11:53:00 98.20 degrees Heart Rate 2022-04-19 11:53:00 57.00 /min Respiratory Rate 2022-04-19 11:53:00 BP Systolic 2022-01-18 11:49:00 117 mm[Hg] BP Diastolic 2022-01-18 11:49:00 64 mm[Hg] Weight Measured 2022-01-18 11:49:00 110.20 pounds Height Measured 2022-01-18 11:49:00 64.60 inches Body Temperature 2022-01-18 11:49:00 98.20 degrees Heart Rate 2022-01-18 11:49:00 80.00 /min Respiratory Rate 2022-01-18 11:49:00 BP Systolic 2021-10-26 16:31:00 116 mm[Hg] BP Diastolic 2021-10-26 16:31:00 72 mm[Hg] Weight Measured 2021-10-26 16:31:00 125.20 pounds Height Measured 2021-10-26 16:31:00 64.60 inches Body Temperature 2021-10-26 16:31:00 98.30 degrees Heart Rate 2021-10-26 16:31:00 82.00 /min Respiratory Rate 2021-10-26 16:31:00 BP Systolic 2021-09-12 14:43:00 BP Diastolic 2021-09-12 14:43:00 Weight Measured 2021-09-12 14:43:00 130.60 pounds Height Measured 2021-09-12 14:43:00 64.60 inches Body Temperature 2021-09-12 14:43:00 97.30 degrees Heart Rate 2021-09-12 14:43:00 81.00 /min Respiratory Rate 2021-09-12 14:43:00 BP Systolic 2020-11-24 15:21:00 131 mm[Hg] BP Diastolic 2020-11-24 15:21:00 81 mm[Hg] Weight Measured 2020-11-24 15:21:00 143.20 pounds Height Measured 2020-11-24 15:21:00 64.61 inches Body Temperature 2020-11-24 15:21:00 96.20 degrees Heart Rate 2020-11-24 15:21:00 93.00 /min Respiratory Rate 2020-11-24 15:21:00 16.00 /min BP Systolic 2020-09-03 13:38:00 BP Diastolic 2020-09-03 13:38:00 Weight Measured 2020-09-03 13:38:00 149.40 pounds Height Measured 2020-09-03 13:38:00 65.00 inches Body Temperature 2020-09-03 13:38:00 97.80 degrees Heart Rate 2020-09-03 13:38:00 Respiratory Rate 2020-09-03 13:38:00 Height Measured 2020-01-05 14:48:00 65.00 inches Body Temperature 2020-01-05 14:48:00 97.50 degrees Heart Rate 2020-01-05 14:48:00 79.00 /min Respiratory Rate 2020-01-05 14:48:00 BP Systolic 2020-01-05 14:48:00 138 mm[Hg] BP Diastolic 2020-01-05 14:48:00 79 mm[Hg] Weight Measured 2020-01-05 14:48:00 158.00 pounds BP Systolic 2019-09-19 11:58:00 132 mm[Hg] BP Diastolic 2019-09-19 11:58:00 69 mm[Hg] Weight Measured 2019-09-19 11:58:00 Height Measured 2019-09-19 11:58:00 Body Temperature 2019-09-19 11:58:00 Heart Rate 2019-09-19 11:58:00 Respiratory Rate 2019-09-19 11:58:00 BP Systolic 2019-09-10 10:51:00 154 mm[Hg] BP Diastolic 2019-09-10 10:51:00 85 mm[Hg] Weight Measured 2019-09-10 10:51:00 153.00 pounds Height Measured 2019-09-10 10:51:00 65.00 inches Body Temperature 2019-09-10 10:51:00 97.10 degrees Heart Rate 2019-09-10 10:51:00 81.00 /min Respiratory Rate 2019-09-10 10:51:00 Procedures Procedure Date / Time Performed Performing Clinician [facility] e MEDICAL 2022-04-24 05:01:00 Doctor Unassigned, No [facility] RELEASE/CLEARANCE Name Medical Branch FORMS EXTERNAL PROVIDER - 2022-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 05:01:00 Doctor Unassigned, No [facility] CARDIOLOGY Name Medical Branch HB ECG ROUTINE & 2022-02-16 20:21:52 Ambreen Ortiz [facility] RHYTHM STRIP Medical Branch Plan of Care Planned Activity Planned Date Details Comments Source Goal Plan of Care Note [code = 66400-6] Goal Plan of Care Note [code = 97815-6] Goal Plan of Care Note [code = 40220-1] Goal Plan of Care Note [code = 82547-7] Goal Plan of Care Note [code = 55641-1] Goal Plan of Care Note [code = 59510-2] Goal Plan of Care Note [code = 67821-2] Goal Plan of Care Note [code = 77078-3] Goal Plan of Care Note [code = 25408-4] Goal Plan of Care Note [code = 91310-7] Goal Plan of Care Note [code = 32764-4] Goal Plan of Care Note [code = 55337-8] Goal Plan of Care Note [code = 12135-8] Goal Plan of Care Note [code = 72834-9] Goal Plan of Care Note [code = 80316-2] Goal Plan of Care Note [code = 54241-0] Goal Plan of Care Note [code = 16569-2] Goal Plan of Care Note [code = 38006-5] Goal Plan of Care Note [code = 75471-2] Goal Plan of Care Note [code = 19542-9] Goal Plan of Care Note [code = 63173-9] Goal Plan of Care Note [code = 84719-3] Goal Plan of Care Note [code = 41661-1] Goal Plan of Care Note [code = 19827-7] Goal Plan of Care Note [code = 72624-3] Goal Plan of Care Note [code = 13091-0] Goal Plan of Care Note [code = 87755-0] Goal Plan of Care Note [code = 81305-5] Goal Plan of Care Note [code = 06642-3] Goal Plan of Care Note [code = 36755-5] Goal Plan of Care Note [code = 25565-0] Goal Plan of Care Note [code = 01129-9] Goal Plan of Care Note [code = 21032-5] Goal Plan of Care Note [code = 23929-4] Goal Plan of Care Note [code = 49775-1] Goal Plan of Care Note [code = 59912-8] Goal Plan of Care Note [code = 28523-5] Goal Plan of Care Note [code = 95232-5] Goal Plan of Care Note [code = 09220-6] Goal Plan of Care Note [code = 36820-2] Goal Plan of Care Note [code = 59515-6] Goal Plan of Care Note [code = 08163-6] Goal Plan of Care Note [code = 94372-6] Goal Plan of Care Note [code = 59374-5] Goal Plan of Care Note [code = 75721-8] Goal Plan of Care Note [code = 03116-1] Goal Plan of Care Note [code = 21030-1] Goal Plan of Care Note [code = 02343-4] Goal Plan of Care Note [code = 46710-6] Goal Plan of Care Note [code = 21867-0] Goal Plan of Care Note [code = 28896-7] Goal Plan of Care Note [code = 75609-2] Goal Plan of Care Note [code = 92548-4] Goal Plan of Care Note [code = 22654-8] Goal Plan of Care Note [code = 59722-9] Goal Plan of Care Note [code = 27564-3] Encounters Start End Encounter Admission Attending Care Care Encounter Source Date/Time Date/Time Type Type Clinicians Facility Department ID 2021-11-09 Outpatient STLMLC STLMLC [id number] Common 14:24:04 [facility] 2022-12-04 2022-12-[address] [facility] [id number] [facility] 13:20:00 13:20:[address] [facility] 2022-07-26 2022-07-26 Outpatient DYLON OSBORNE [id number] Edward 10:56:34 10:56:34 0111 F Killian 2022-07-26 2022-07-26 Outpatient [id number]- [id number] f1 sz05sp-8 00:00:00 00:00:00 Visit 48d9-6994 0v1-8071-0 -986e-615 86e-615d8a [id number] 788e34 2022-06-05 2022-06-05 [facility] 1.2.840.114 [id number] [facility] 13:00:00 13:22:40 Visit Ambreen PEREZ 350.1.13.10 [facility] 4.2.7.2.[place] [id number] Mi dical [address] 2022-06-05 2022-06-[address] [facility] [id number] [facility] 13:00:00 13:22:[address] [facility] 2022-04-24 2022-04-24 [facility] [id number] Univers 00:00:00 00:00:00 Qiangjun [place] 350.1.13.10 it[place] [phone] Mi dical NAL 059 [facility] 2022-04-24 2022-04-24 Orders Doctor LEWIS 1.2.840.114 [id number] Univers 00:00:00 00:00:00 Only Unassigned, GIACOMO 350.1.13.10 ity of [facility] 4.2.7.2.686 [place] [id number] [address] 2022-04-19 2022-04-19 Outpatient [facility] [id number] Edward 11:49:22 11:49:22 1005 F Killian 2022-04-19 2022-04-19 Outpatient [id number]- [id number] ec 64s49w-7 00:00:00 00:00:00 Visit 9x71-35m1 t95-01z7-d -a8wo-e1u 9de-f1ea37 [facility]wtcv [facility] 2022-04-13 2022-04-13 [facility] [id number] [facility] 13:45:00 14:08:43 MINNIE ity of [facility] 2022-04-10 2022-04-10 Telephone [facility] 1.2.411.311 [id number] Univers 00:00:00 00:00:00 Ambreen PEREZ 350.1.13.10 ity [facility] [place] [phone] Mi dicnj NAL [address] [place] [address] 2022-04-10 2022-04-10 Orders Doctor LEWIS 1.2.840.114 [id number] Univers 00:00:00 00:00:00 Only Unassigned, GIACOMO 350.1.13.10 ity of [facility] 4.2.7.2.686 [place] [id number] [address] 2022-03-21 2022-03-21 Telephone [facility] 1.2.983.726 [id number] Univers 00:00:00 00:00:00 Qiangjun [place] 350.1.13.10 [place]y [place] [id number] Mi dical NAL 9 [facility] 2022-03-17 2022-03-17 Outpatient R DIANA, [facility] [id number] Univers 13:00:00 13:00:[address] [facility] 2022-03-17 2022-03-17 Outpatient R DIANA, [facility] [id number] Univers 11:27:51 12:12:[address] [facility] 2022-02-16 2022-02-16 Outpatient R DIANA, [facility] [id number] Univers 15:00:00 16:02:[address] [facility] 2022-02-16 2022-02-16 Office Diana, [facility] 1.2.840.114 [id number] Univers 15:00:00 16:02:37 Visit Ambreen PEREZ 350.1.13.10 ity [facility] [place]2.[place].2.[place] [id number] Mi dical NAL [address] [place] [address] 2022-02-16 2022-02-16 Outpatient R DIANA, [facility] [id number] Univers 15:00:00 16:02:[address] [facility] 2022-02-10 2022-02-[address] [facility] [id number] Univers 14:31:11 23:59:00 ity of [facility] 2022-02-10 2022-02-10 Hospital Radiology [facility] 1.2.840.114 [id number] Univers 14:15:00 23:59:00 Encounter CHRIS 350.1.13.10 ity [facility] [place] [id number] [address] 2022-02-10 2022-02-[address] [facility] [id number] Univers 00:00:00 00:00:00 ity of [facility] 2022-02-10 2022-02-10 Orders Doctor SAUCEDO 1.2.840.114 [id number] Univers 00:00:00 00:00:00 Only Unassigned, GIACOMO 350.1.13.10 ity of [facility] 4.2.7.2.686 [place] [phone] [facility] [address] 2022-01-23 2022-01-[address] [facility] [id number] Univers 15:45:00 16:51:52 JUSTA ity of [facility] 2022-01-23 2022-01-23 Ancillary Radha Vinson [facility] 1.2. 840.114 [id number] Univers 15:45:00 16:51:52 Visit Cristian Justa [place] [facility] 350.1.13.10 [place] of [place] [id number] [place] [address] [address] OFFICE BUILDING 2022-01-23 2022-01-23 Orders Doctor LEWIS 1.2.840.114 [id number] Univers 00:00:00 00:00:00 Only Unassigned, GIACOMO 350.1.13.10 ity of [facility] 4.2.7.2.686 [place] [phone] [place] [address] [address] 2022-01-18 2022-01-18 Outpatient [id number] 3x1521-6 00:00:00 00:00:00 Visit 6z43-52x3 q69-06l4-0 -7yh4-o21 fc3-c755a0 2d12f04wh 8e76ec Results Test Description Test Time Test Comments Results Result Comments Source VITAMIN D, 25 [place] 2022-07-27 06:38:01 Test Item Value Reference Range Interpretation Comme nts VITAMIN D, 25 OH (test 30 NG/ML SEE BELOW E FFECTIVE 07/24/2022, PLEASE NOTE code = 4958) NEW METHODOLOGY IS ELECTROCHEMILUM INESCENCE BINDING ASSAY. NOTE: 25-HYDROX YVITAMIN D ASSAY INCLUDES 25-HYDROXYVITAM IN D2 AND D3. INTERPRETIVE RA NGES PEDIATRIC (<17 YEARS) . . . . . . . . . . . NG/ML 20-100ADULT: IN SUFFICIENT . . . . . . . . . . . . . . N G/ML <20 SUBOPTIMAL . . . . . . . . . . . . . . . NG/ML 20-29 OPTIMAL . . . . . . . . . . . . . . . . . NG/ML 30-100 COMPREHENSIVE METABOLIC [id number] 04:50:34 Test Item Value Reference Range Interpretation Comments GLUCOSE (test code = 125 MG/DL 70-99 H 2216) BUN (test code = 24 MG/DL 8-23 H 2207) CREATININE (test 0.58 MG/DL 0.60-1.30 L code = 2214) eGFR (2020 CKD-EPI) 91 ML/MIN/1.73 >60 (test code = 80607) CALC BUN/CREAT (test 41 RATIO 6-28 H code = 2235) SODIUM (test code = 139 MEQ/L 171-935 7394) POTASSIUM (test code 4.5 MEQ/L 3.5-5.4 = 2227) CHLORIDE (test code 100 MEQ/L 95-107 = 2214) CARBON DIOXIDE (test 22 MEQ/L 19-31 code = 220) CALCIUM (test code = 8.7 MG/DL 8.5-10.5 2208) PROTEIN, TOTAL (test 5.6 G/DL 6.1-8.3 L code = 2229) ALBUMIN (test code = 2.6 G/DL 3.5-5.2 L 2200) CALC GLOBULIN (test 3.0 G/DL 1.9-3.7 code = 2240) CALC A/G RATIO (test 0.9 RATIO 1.0-2.6 L code = 2234) BILIRUBIN, TOTAL 0.6 MG/DL See_Comment [Automated message] (test code = 220) The syste m which generated this result transmit angelo reference range : <=1.2. The refe rence range was not u sed to interpret th is result as normal/abnormal . ALKALINE PHOSPHATASE 69 U/L 40-142 (test code = 2204) AST (test code = 103 U/L 9-40 H 2217) ALT (test code = 39 U/L 5-40 2218) CBC W/AUTO DIFF WITH [id number] 02:00:02 Test Item Value Reference Range Interpretation Comments WBC (test code = 16.7 K/UL 3.5-11.0 H 1001) RBC (test code = 4.06 M/UL 3.80-5.40 1002) HEMOGLOBIN (test 12.3 G/DL 11.5-15.5 code = 1003) HEMATOCRIT (test 36.9 % 34.0-45.0 code = 1004) MCV (test code = 90.9 fL 80.0-99.0 1005) MCH (test code = 30.3 PG 25.0-33.0 1006) MCHC (test code = 33.3 G/DL 31.0-36.0 1007) RDW (test code = 13.1 % 11.5-15.0 1038) NEUTROPHILS (test 88.0 % code = 1008) LYMPHOCYTES (test 6.1 % code = 1010) MONOCYTES (test code 5.1 % = 1011) EOSINOPHILS (test 0.1 % code = 1012) BASOPHILS (test code 0.2 % = 1013) IMMATURE 0.5 % GRANULOCYTES (test code = 1036) NUCLEATED RBCS (test 0.0 /100 See_Comment [Autom ated message] code = 1065) WBC'S The system [employer] generated this result transmitted ref erence range: 0.0. The reference range was not used to int erpret this result as normal/abnormal . PLATELET COUNT (test 317 K/UL 130-400 code = 1015) ABSOLUTE NEUTROPHILS 14.72 K/UL 1.50-7.50 H (test code = 1066) ABSOLUTE LYMPHOCYTES 1.02 K/UL 1.00-4.00 (test code = 1067) ABSOLUTE MONOCYTES 0.85 K/UL 0.20-1.00 (test code = 1068) ABSOLUTE EOSINOPHILS 0.02 K/UL 0.00-0.50 (test code = 1040) ABSOLUTE BASOPHILS 0.03 K/UL 0.00-0.20 (test code = 1069) ABS IMMATURE 0.08 K/UL 0.00-0.10 GRANULOCYTES (test code = 1020) ABS NUCLEATED RBCS 0.00 K/UL 0.00-0.11 UNLESS O THERWISE (test code = 90122) INDICATE D, ALL TESTING PERFORM ED [facility], [address] [place] [address] [facility] DIRECTOR: LUZ MARINA LINARES M.D. CLIA NUMBER [id number] CAP ACCREDITATION N O. [id number] COMPREHENSIVE METABOLIC PANEL [ADDED]2022-07-27 00:00:00 Test Item Value Reference Range Interpretation Comments GLUCOSE (test code = 2217) 125 MG/DL BUN (test code = 2208) 24 MG/DL CREATININE (test code = 2214) 0.58 MG/DL eGFR (2020 CKD-EPI) (test code 91 ML/MIN/1.73 = 23600) CALC BUN/CREAT (test code = 41 RATIO 2235) SODIUM (test code = 2231) 139 MEQ/L POTASSIUM (test code = 2228) 4.5 MEQ/L CHLORIDE (test code = 2215) 100 MEQ/L CARBON DIOXIDE (test code = 22 MEQ/L 220) CALCIUM (test code = 2209) 8.7 MG/DL PROTEIN, TOTAL (test code = 5.6 G/DL 2228) ALBUMIN (test code = 2201) 2.6 G/DL CALC GLOBULIN (test code = 3.0 G/DL 2240) CALC A/G RATIO (test code = 0.9 RATIO 2234) BILIRUBIN, TOTAL (test code = 0.6 MG/DL 2206) ALKALINE PHOSPHATASE (test 69 U/L code = 2204) AST (test code = 2218) 103 U/L ALT (test code = 2219) 39 U/L COMPREHENSIVE METABOLIC PANEL [ADDED]2022-07-27 00:00:00 Test Item Value Reference Range Interpretation Comments GLUCOSE (test code = 2217) 125 MG/DL BUN (test code = 2208) 24 MG/DL CREATININE (test code = 2214) 0.58 MG/DL eGFR (2020 CKD-EPI) (test code 91 ML/MIN/1.73 = 58622) CALC BUN/CREAT (test code = 41 RATIO 2235) SODIUM (test code = 2231) 139 MEQ/L POTASSIUM (test code = 2228) 4.5 MEQ/L CHLORIDE (test code = 2215) 100 MEQ/L CARBON DIOXIDE (test code = 22 MEQ/L 2206) CALCIUM (test code = 2209) 8.7 MG/DL PROTEIN, TOTAL (test code = 5.6 G/DL 222) ALBUMIN (test code = 2201) 2.6 G/DL CALC GLOBULIN (test code = 3.0 G/DL 2240) CALC A/G RATIO (test code = 0.9 RATIO 2234) BILIRUBIN, TOTAL (test code = 0.6 MG/DL 2207) ALKALINE PHOSPHATASE (test 69 U/L code = 2204) AST (test code = 2218) 103 U/L ALT (test code = 2219) 39 U/L VITAMIN D, 25 OH [ADDED]2022-07-27 00:00:00 Test Item Value Reference Range Interpretation Comments VITAMIN D, 25 OH (test code = 4958) 30 NG/ML VITAMIN D, 25 OH [ADDED]2022-07-27 00:00:00 Test Item Value Reference Range Interpretation Comments VITAMIN D, 25 OH (test code = 4958) 30 NG/ML CBC W/AUTO DIFF WITH PLATELETS [ADDED]2022-07-27 00:00:00 Test Item Value Reference Range Interpretation Comments WBC (test code = 1001) 16.7 K/UL RBC (test code = 1002) 4.06 M/UL HEMOGLOBIN (test code = 1003) 12.3 G/DL HEMATOCRIT (test code = 1004) 36.9 % MCV (test code = 1005) 90.9 fL MCH (test code = 1006) 30.3 PG MCHC (test code = 1007) 33.3 G/DL RDW (test code = 1038) 13.1 % NEUTROPHILS (test code = 1008) 88.0 % LYMPHOCYTES (test code = 1010) 6.1 % MONOCYTES (test code = 1011) 5.1 % EOSINOPHILS (test code = 1012) 0.1 % BASOPHILS (test code = 1013) 0.2 % IMMATURE GRANULOCYTES (test 0.5 % code = 1036) NUCLEATED RBCS (test code = 0.0 /100WBC'S 1065) PLATELET COUNT (test code = 317 K/UL 1015) ABSOLUTE NEUTROPHILS (test code 14.72 K/UL = 1066) ABSOLUTE LYMPHOCYTES (test code 1.02 K/UL = 1067) ABSOLUTE MONOCYTES (test code = 0.85 K/UL 1068) ABSOLUTE EOSINOPHILS (test code 0.02 K/UL = 1040) ABSOLUTE BASOPHILS (test code = 0.03 K/UL 1069) ABS IMMATURE GRANULOCYTES (test 0.08 K/UL code = 1020) ABS NUCLEATED RBCS (test code = 0.00 K/UL 57465) CBC W/AUTO DIFF WITH PLATELETS [ADDED]2022-07-27 00:00:00 Test Item Value Reference Range Interpretation Comments WBC (test code = 1001) 16.7 K/UL RBC (test code = 1002) 4.06 M/UL HEMOGLOBIN (test code = 1003) 12.3 G/DL HEMATOCRIT (test code = 1004) 36.9 % MCV (test code = 1005) 90.9 fL MCH (test code = 1006) 30.3 PG MCHC (test code = 1007) 33.3 G/DL RDW (test code = 1038) 13.1 % NEUTROPHILS (test code = 1008) 88.0 % LYMPHOCYTES (test code = 1010) 6.1 % MONOCYTES (test code = 1011) 5.1 % EOSINOPHILS (test code = 1012) 0.1 % BASOPHILS (test code = 1013) 0.2 % IMMATURE GRANULOCYTES (test 0.5 % code = 1036) NUCLEATED RBCS (test code = 0.0 /100WBC'S 1065) PLATELET COUNT (test code = 317 K/UL 1015) ABSOLUTE NEUTROPHILS (test code 14.72 K/UL = 1066) ABSOLUTE LYMPHOCYTES (test code 1.02 K/UL = 1067) ABSOLUTE MONOCYTES (test code = 0.85 K/UL 1068) ABSOLUTE EOSINOPHILS (test code 0.02 K/UL = 1040) ABSOLUTE BASOPHILS (test code = 0.03 K/UL 1069) ABS IMMATURE GRANULOCYTES (test 0.08 K/UL code = 1020) ABS NUCLEATED RBCS (test code = 0.00 K/UL 99281) CBC W/AUTO DIFF WITH PLATELETS [ADDED]2022-07-27 00:00:00 Test Item Value Reference Range Interpretation Comments WBC (test code = 1001) 16.7 K/UL RBC (test code = 1002) 4.06 M/UL HEMOGLOBIN (test code = 1003) 12.3 G/DL HEMATOCRIT (test code = 1004) 36.9 % MCV (test code = 1005) 90.9 fL MCH (test code = 1006) 30.3 PG MCHC (test code = 1007) 33.3 G/DL RDW (test code = 1038) 13.1 % NEUTROPHILS (test code = 1008) 88.0 % LYMPHOCYTES (test code = 1010) 6.1 % MONOCYTES (test code = 1011) 5.1 % EOSINOPHILS (test code = 1012) 0.1 % BASOPHILS (test code = 1013) 0.2 % IMMATURE GRANULOCYTES (test 0.5 % code = 1036) NUCLEATED RBCS (test code = 0.0 /100WBC'S 1065) PLATELET COUNT (test code = 317 K/UL 1015) ABSOLUTE NEUTROPHILS (test code 14.72 K/UL = 1066) ABSOLUTE LYMPHOCYTES (test code 1.02 K/UL = 1067) ABSOLUTE MONOCYTES (test code = 0.85 K/UL 1068) ABSOLUTE EOSINOPHILS (test code 0.02 K/UL = 1040) ABSOLUTE BASOPHILS (test code = 0.03 K/UL 1069) ABS IMMATURE GRANULOCYTES (test 0.08 K/UL code = 1020) ABS NUCLEATED RBCS (test code = 0.00 K/UL 15842) CBC (INCLUDES DIFF/PLT)2021-09-13 00:00:00 Test Item Value Reference Range Interpretation Comments WHITE BLOOD CELL COUNT (test 8.1 Thousand/uL code = 6690-2) RED BLOOD CELL COUNT (test 4.21 Million/uL code = 789-8) HEMOGLOBIN (test code = 13.7 g/dL 718-7) HEMATOCRIT (test code = 40.7 % 4544-3) MCV (test code = 787-2) 96.7 fL MCH (test code = 785-6) 32.5 pg MCHC (test code = 786-4) 33.7 g/dL RDW (test code = 788-0) 13.2 % PLATELET COUNT (test code = 207 Thousand/uL 777-3) MPV (test code = 776-5) 11.6 fL ABSOLUTE NEUTROPHILS (test 6075 cells/uL code = 751-8) ABSOLUTE BAND NEUTROPHILS DNR cells/uL (test code = 00043-6) ABSOLUTE METAMYELOCYTES (test DNR cells/uL code = 99306-9) ABSOLUTE MYELOCYTES (test DNR cells/uL code = 99852-6) ABSOLUTE PROMYELOCYTES (test DNR cells/uL code = 63238-2) ABSOLUTE LYMPHOCYTES (test 1426 cells/uL code = 731-0) ABSOLUTE MONOCYTES (test code 543 cells/uL = 742-7) ABSOLUTE EOSINOPHILS (test 8 cells/uL code = 711-2) ABSOLUTE BASOPHILS (test code 49 cells/uL = 704-7) ABSOLUTE BLASTS (test code = DNR cells/uL 56480-4) ABSOLUTE NUCLEATED RBC (test DNR cells/uL code = 13880-5) NEUTROPHILS (test code = 75 % 770-8) BAND NEUTROPHILS (test code = DNR % 764-1) METAMYELOCYTES (test code = DNR % 740-1) MYELOCYTES (test code = DNR % 749-2) PROMYELOCYTES (test code = DNR % 783-1) LYMPHOCYTES (test code = 17.6 % 736-9) REACTIVE LYMPHOCYTES (test DNR % code = 44030-7) MONOCYTES (test code = 6.7 % 5905-5) EOSINOPHILS (test code = 0.1 % 713-8) BASOPHILS (test code = 706-2) 0.6 % BLASTS (test code = 709-6) DNR % NUCLEATED RBC (test code = DNR /100WBC 88828-4) COMMENT(S) (test code = DNR 8251-1) HEPATIC FUNCTION [id number] 00:00:00 Test Item Value Reference Range Interpretation Comments PROTEIN, TOTAL (test code = 6.6 g/dL 2885-2) ALBUMIN (test code = 1751-7) 3.8 g/dL GLOBULIN (test code = 2.8 g/dL(calc) 37601-3) ALBUMIN/GLOBULIN RATIO (test 1.4 (calc) code = 1759-0) BILIRUBIN, TOTAL (test code = 0.4 mg/dL 1974-) BILIRUBIN, DIRECT (test code 0.1 mg/dL = 1967-7) BILIRUBIN, INDIRECT (test 0.3 mg/dL(calc) code = 1970-) ALKALINE PHOSPHATASE (test 62 U/L code = 6768-6) AST (test code = 1920-8) 13 U/L ALT (test code = 1742-6) 8 U/L CBC (INCLUDES DIFF/PLT)2021-09-13 00:00:00 Test Item Value Reference Range Interpretation Comments WHITE BLOOD CELL COUNT (test 8.1 Thousand/uL code = 6690-2) RED BLOOD CELL COUNT (test 4.21 Million/uL code = 789-8) HEMOGLOBIN (test code = 13.7 g/dL 718-7) HEMATOCRIT (test code = 40.7 % 4544-3) MCV (test code = 787-2) 96.7 fL MCH (test code = 785-6) 32.5 pg MCHC (test code = 786-4) 33.7 g/dL RDW (test code = 788-0) 13.2 % PLATELET COUNT (test code = 207 Thousand/uL 777-3) MPV (test code = 776-5) 11.6 fL ABSOLUTE NEUTROPHILS (test 6075 cells/uL code = 751-8) ABSOLUTE BAND NEUTROPHILS DNR cells/uL (test code = 37955-8) ABSOLUTE METAMYELOCYTES (test DNR cells/uL code = 84193-8) ABSOLUTE MYELOCYTES (test DNR cells/uL code = 42106-3) ABSOLUTE PROMYELOCYTES (test DNR cells/uL code = 35917-3) ABSOLUTE LYMPHOCYTES (test 1426 cells/uL code = 731-0) ABSOLUTE MONOCYTES (test code 543 cells/uL = 742-7) ABSOLUTE EOSINOPHILS (test 8 cells/uL code = 711-2) ABSOLUTE BASOPHILS (test code 49 cells/uL = 704-7) ABSOLUTE BLASTS (test code = DNR cells/uL 21863-3) ABSOLUTE NUCLEATED RBC (test DNR cells/uL code = 07579-4) NEUTROPHILS (test code = 75 % 770-8) BAND NEUTROPHILS (test code = DNR % 764-1) METAMYELOCYTES (test code = DNR % 740-1) MYELOCYTES (test code = DNR % 749-2) PROMYELOCYTES (test code = DNR % 783-1) LYMPHOCYTES (test code = 17.6 % 736-9) REACTIVE LYMPHOCYTES (test DNR % code = 83732-1) MONOCYTES (test code = 6.7 % 5905-5) EOSINOPHILS (test code = 0.1 % 713-8) BASOPHILS (test code = 706-2) 0.6 % BLASTS (test code = 709-6) DNR % NUCLEATED RBC (test code = DNR /100WBC 53504-0) COMMENT(S) (test code = DNR 8251-1) HEPATIC FUNCTION [id number] 00:00:00 Test Item Value Reference Range Interpretation Comments PROTEIN, TOTAL (test code = 6.6 g/dL 2885-2) ALBUMIN (test code = 1751-7) 3.8 g/dL GLOBULIN (test code = 2.8 g/dL(calc) 73323-9) ALBUMIN/GLOBULIN RATIO (test 1.4 (calc) code = 1759-0) BILIRUBIN, TOTAL (test code = 0.4 mg/dL 1974-08) BILIRUBIN, DIRECT (test code 0.1 mg/dL = 1968-01) BILIRUBIN, INDIRECT (test 0.3 mg/dL(calc) code = 1970-) ALKALINE PHOSPHATASE (test 62 U/L code = 6768-6) AST (test code = 1920-8) 13 U/L ALT (test code = 1742-6) 8 U/L CBC (INCLUDES DIFF/PLT)2021-09-13 00:00:00 Test Item Value Reference Range Interpretation Comments WHITE BLOOD CELL COUNT (test 8.1 Thousand/uL code = 6690-2) RED BLOOD CELL COUNT (test 4.21 Million/uL code = 789-8) HEMOGLOBIN (test code = 13.7 g/dL 8-7) HEMATOCRIT (test code = 40.7 % 4544-3) MCV (test code = 787-2) 96.7 fL MCH (test code = 785-6) 32.5 pg MCHC (test code = 786-4) 33.7 g/dL RDW (test code = 788-0) 13.2 % PLATELET COUNT (test code = 207 Thousand/uL 777-3) MPV (test code = 776-5) 11.6 fL ABSOLUTE NEUTROPHILS (test 6075 cells/uL code = 751-8) ABSOLUTE BAND NEUTROPHILS DNR cells/uL (test code = 68295-2) ABSOLUTE METAMYELOCYTES (test DNR cells/uL code = 83880-6) ABSOLUTE MYELOCYTES (test DNR cells/uL code = 88386-5) ABSOLUTE PROMYELOCYTES (test DNR cells/uL code = 33015-2) ABSOLUTE LYMPHOCYTES (test 1426 cells/uL code = 731-0) ABSOLUTE MONOCYTES (test code 543 cells/uL = 742-7) ABSOLUTE EOSINOPHILS (test 8 cells/uL code = 711-2) ABSOLUTE BASOPHILS (test code 49 cells/uL = 704-7) ABSOLUTE BLASTS (test code = DNR cells/uL 25247-0) ABSOLUTE NUCLEATED RBC (test DNR cells/uL code = 67461-6) NEUTROPHILS (test code = 75 % 770-8) BAND NEUTROPHILS (test code = DNR % 764-1) METAMYELOCYTES (test code = DNR % 740-1) MYELOCYTES (test code = DNR % 749-2) PROMYELOCYTES (test code = DNR % 783-1) LYMPHOCYTES (test code = 17.6 % 736-9) REACTIVE LYMPHOCYTES (test DNR % code = 23221-1) MONOCYTES (test code = 6.7 % 5905-5) EOSINOPHILS (test code = 0.1 % 713-8) BASOPHILS (test code = 706-2) 0.6 % BLASTS (test code = 709-6) DNR % NUCLEATED RBC (test code = DNR /100WBC 40802-7) COMMENT(S) (test code = DNR 8251-1) HEPATIC FUNCTION [id number] 00:00:00 Test Item Value Reference Range Interpretation Comments PROTEIN, TOTAL (test code = 6.6 g/dL 2885-2) ALBUMIN (test code = 1751-7) 3.8 g/dL GLOBULIN (test code = 2.8 g/dL(calc) 25960-6) ALBUMIN/GLOBULIN RATIO (test 1.4 (calc) code = 1759-0) BILIRUBIN, TOTAL (test code = 0.4 mg/dL 1974-) BILIRUBIN, DIRECT (test code 0.1 mg/dL = 1967-7) BILIRUBIN, INDIRECT (test 0.3 mg/dL(calc) code = 1970-) ALKALINE PHOSPHATASE (test 62 U/L code = 6768-6) AST (test code = 1920-8) 13 U/L ALT (test code = 1742-6) 8 U/L
[2022-08-13] MEDS ORDERED: NA CHLORIDE 0.9% 1,000 ML ONE ×2 (16:11→17:56)
[2022-08-13 16:21] LABS: Hematocrit 37.8 % (36.0-45.0); Lymphocytes % 11.7 % (15.3-44.8); MCV 98.5 fL (80-100); MPV 8.1 fL (7.6-11.3); RBC Red Blood Cell Count 3.84 M/uL (3.86-4.86)
[2022-08-13] MEDS ORDERED: NA CHLORIDE 0.9% 100 ML ONE (16:25)
[2022-08-13] MEDS ORDERED: NA CHLORIDE 0.9% 50 ML IV ONE (16:25)
[2022-08-13] MEDS ORDERED: CEFTRIAXONE 1000 MG/VIAL ONE (16:25)
[2022-08-13] MEDS ORDERED: FAMOTIDINE 20 MG/2 ML VIAL IV ONE (16:26)
[2022-08-13] MEDS ORDERED: PIPERACIL/TAZO 3.375 GM VIAL IV ONE (16:26)
[2022-08-13 16:35] LABS: Potassium 6.9 mmol/L (3.5-5.1); Troponin High Sensitivity 3015.7 pg/mL (<58.9)
[2022-08-13 16:54] LABS: Urine Blood Negative (Negative); Urine Glucose Negative (Negative); Urine Protein 1+ (Negative); Urine Specific Gravity 1.015 (1.005-1.030); Urine pH 5.5 (5.0-7.0)
[2022-08-13 17:00] LABS: SARS-COV-2 RT PCR NEGATIVE (NEGATIVE)
[2022-08-13 17:00] LABS: Blood Morphology Comment NOT SEEN (NOT SEEN); Platelet Estimate INCR
[2022-08-13] MEDS ORDERED: CALCIUM GLUCONATE 1 GM IVPB 1 GM/50 ML BAG IV ONE (17:00)
--- NOTE | 2022-08-13 17:01 | RAD REPORT ---
EXAM DESCRIPTION: RAD - Chest Single View - 08/13/2022 4:52 pm CLINICAL HISTORY: AMS COMPARISON: Chest Pa And Lat (2 Views) dated 12/02/2021 FINDINGS: Lines: None. Lungs: No evidence of edema or pneumonia. Pleural: No significant pleural effusions or pneumothorax. Cardiac: The heart size is within normal limits. Mediastinum: Within normal limits. Bones: No acute fractures. Other: Calcified breast prostheses. Atherosclerosis . IMPRESSION: No acute cardiopulmonary disease.
[2022-08-13] MEDS ORDERED: INSULIN -REGULAR HUMAN 50 UNIT/0.5 ML ML ONE (17:02)
[2022-08-13] MEDS ORDERED: ALBUTEROL 2.5 MG/3 ML NEB SOL ONE (17:03)
[2022-08-13] MEDS ORDERED: SODIUM BICARB 50 MEQ/50ML VIAL ONE ×2 (17:04→17:34)
[2022-08-13] MEDS ORDERED: IPRATROPIUM BROM 0.5MG/2.5ML ONE (17:04)
[2022-08-13] MEDS ORDERED: D10W 250 ML IV ONE (17:04)
[2022-08-13 17:06] LABS: Blood O2 Saturation 95.6 % (92-98.5)
[2022-08-13 17:33] LABS: Albumin 1.7 g/dL (3.4-5.0); Bilirubin Total 0.6 mg/dL (0.2-1.0); Protein, Total 6.6 g/dL (6.4-8.2)
[2022-08-13 17:34] LABS: Potassium 8.4 mmol/L (3.5-5.1)
[2022-08-13] MEDS ORDERED: D5W 1,000 ML IV ONE (17:34)
--- NOTE | 2022-08-13 17:43 | ER ---
Nurse's Notes [facility] Name: Michelle Garzon Age: 81 yrs Sex: Female : 1940 Arrival Date: 08/13/2022 Time: 15:25 Bed 16 Private MD: Ag Miller R Diagnosis: Acidosis-metabolic;Hypotension, unspecified;Severe sepsis without septic shock;Hyperkalemia;Do not resuscitate;Acute and chronic respiratory failure with hypercapnia;COPD/ Chronic obstructive pulmonary disease, unspecified;Elevated white blood cell count;Bandemia Presentation: 08/13 15:37 Chief complaint: Patient's son or daughter states: she has been declining quickly over ko1 the past hours, less responsive. Coronavirus screen: At this time, the client does not indicate any symptoms associated with coronavirus-19. Ebola Screen: No symptoms or risks identified at this time. Initial Sepsis Screen: Does the patient meet any 2 criteria? RR > 20 per min. Temp <36.0*C (96.8*F)) or > 38.3*C (100.9*F). Altered Mental Status. Yes Does the patient have a suspected source of infection? No. Patient's initial sepsis screen is negative. Risk Assessment: Do you want to hurt yourself or someone else? Patient reports no desire to harm self or others. Onset of symptoms was August 13, 2022. 15:37 Method Of Arrival: Wheelchair ko1 15:37 Acuity: BRE 1 ss Triage Assessment: 15:47 General: Appears distressed, ill, emaciated, Behavior is appropriate for age, drowsy. ko1 Pain: Denies pain. Neuro: Level of Consciousness is lethargic. Historical: - Allergies: 15:47 No Known Allergies; ko1 - PMHx: 15:47 Hyperlipidemia; Hypertension; ko1 - Immunization history:: Adult Immunizations up to date. - Social history:: Smoking status: Patient denies any tobacco usage or history of. Screenin:12 [facility] ED Fall Risk Assessment (Adult) History of falling in the last 3 months, db including since admission No falls in past 3 months (0 pts) Confusion or Disorientation Yes (5 pts) Intoxicated or Sedated No (0 pts) Impaired Gait Yes (1 pt) Mobility Assist Device Used Yes (1 pt) Altered Elimination Yes (1 pt) Score/Fall Risk Level 3 or more points = High Risk Oriented to surroundings, Maintained a safe environment, Educated pt \T\ family on fall prevention, incl call for assistance when getting out of bed, Hourly rounding (assess needs \T\ fall precautionary measures) done. Abuse screen: Denies threats or abuse. Denies injuries from another. Nutritional screening: No deficits noted. Tuberculosis screening: No symptoms or risk factors identified. Assessment: 15:40 Reassessment: patient brought in by son lethargic and weak. Son reports patient became db more weak today and has a hx of a stroke. Reassessment: Patient and/or family updated on plan of care and expected duration. Pain level reassessed. son is at bedside. making patient comfortable. warm blankets applied. General: Appears well groomed, emaciated, Behavior is calm, cooperative. Pain: Complains of pain in left leg. Neuro: Level of Consciousness is awake, alert, obeys commands, confused, lethargic, Oriented to person. Cardiovascular: Rhythm is sinus tachycardia. 16:00 Reassessment: Reassessment: patient became unresponsive but awake. No longer talking. db Dr. Woods at bedside. Neuro: Level of Consciousness is awake, unresponsive. 17:32 Reassessment: RT at bedside placing patient on bipap. Neuro: Level of Consciousness is db unresponsive. 17:33 Reassessment: Dr. Woods at bedside. db 17:43 Reassessment: RT at bedside. placed patient on Bipap. notified physician of patient BP db 70/48. no new orders. 17:56 Reassessment: son and visitor at patient bedside. db 17:57 Reassessment: No changes from previously documented assessment. Patient and/or family db updated on plan of care and expected duration. Pain level reassessed. 18:15 Reassessment: family requesting pain medication for patient. Notified Dr. Woods. db States will place new order. 18:40 Reassessment: No changes from previously documented assessment. Patient and/or family db updated on plan of care and expected duration. Pain level reassessed. family at bedside. patient medicated as ordered. 18:50 Reassessment: lab is at patient bedside. db 18:57 Reassessment: No changes from previously documented assessment. Patient and/or family db updated on plan of care and expected duration. Pain level reassessed. family asked for me to check for a pulse. pulse found left groin. 19:10 Reassessment: Patient and/or family updated on plan of care and expected duration. Pain db level reassessed. repeat check pulse for family. Patient with pulse in right groin. Covered patient. Updated family. 20:04 Reassessment: Pronounced a 1957. ke1 20:11 Reassessment: [employer]# [id number] not a candidate. ke1 20:36 Reassessment: Patient is lying in bed , no respiration, no pulse , family at bedside, ke1 pronounced by MD. 22:30 Reassessment: Body picked up by [facility]. ke1 Vital Signs: 15:37 BP 130 / 103; Resp 24; Temp 96.7(T); Pulse Ox 97% ; Weight 49.9 kg; Height 5 ft. 4 in. ko1 (162.56 cm); 15:40 BP 119 / 102; Pulse 125; Resp 35; Temp 98.9(R); db 16:05 Temp 98.9(R); ss 16:15 BP 95 / 56; Pulse 76; Resp 27; Pulse Ox 100% on 15% Non-rebreather mask; mb9 16:20 BP 95 / 56; Pulse 71; Resp 25; ss 16:30 BP 72 / 49; Pulse 68; Resp 25; Pulse Ox 100% on 15% Non-rebreather mask; db 16:45 BP 54 / 38; Pulse 80; Resp 24; Pulse Ox 100% on 15% Non-rebreather mask; db 17:07 BP 99 / 44; Pulse 77; Resp 24; Pulse Ox 96% on 15% Non-rebreather mask; mb9 17:30 BP 70 / 48; Pulse 101; Resp 24; Pulse Ox 100% on BiPAP; db 17:45 BP 54 / 46; Pulse 90; Resp 26 S; Pulse Ox 100% on BiPAP; db 18:00 BP 49 / 35 LA Supine (auto/); Pulse 78; Resp 28; Pulse Ox 100% on BiPAP; db 18:30 BP 65 / 14; Pulse 72; Resp 20; Pulse Ox 100% on BiPAP; db 18:55 BP 58 / 28; Pulse 68; Resp 18; Pulse Ox 100% on BiPAP; db 15:37 Body Mass Index 18.88 (49.90 kg, 162.56 cm) ko1 15:40 unable to obtain O2 saturation db 16:[address] Woods db 16:[address] Woods no new order db 17:30 MAP 55 db 17:45 Map 51 db 18:[address] Woods of BP no new orders db Vitals: 17:45 Cardiac Rhythm Assessment Atrial fibrillation. db NIH Stroke Scale Scores: 17:12 NIHSS Score: 3 db ED Course: 15:25 Patient arrived in ED. am2 15:25 Ag Miller MD is Private Physician. am2 15:47 Triage completed. ko1 15:47 Arm band placed on left wrist. Patient placed in an exam room, in a wheelchair, Patient ko1 notified of wait time. 15:50 Slava Woods MD is Attending Physician. rickey 16:00 Patient has correct armband on for positive identification. Bed in low position. Call db light in reach. Side rails up X2. Client placed on continuous cardiac and pulse oximetry monitoring. NIBP monitoring applied. Warm blanket given. 16:00 Report given to BLU Christine. db 16:02 Inserted saline lock: 22 gauge in right hand, using aseptic technique. ,using aseptic ss technique. Insertion by BLU Martinez. 16:03 Inserted saline lock: 22 gauge in left antecubital area, using aseptic technique. Blood ss collected. 16:16 Inserted saline lock: 18 gauge in left EJ, using aseptic technique. ,using aseptic ss technique. Inserted by Dr. woods. 16:19 Michelle Best RN is Primary Nurse. db 16:40 Hammond cath inserted, using sterile technique, 16 Fr., by ED staff, balloon inflated, to ss gravity drainage, criticore hammond. 16:54 XRAY Chest (1 view) In Process Unspecified. EDMS 17:38 La Jackson MD is Hospitalizing Provider. rickey 19:11 Primary Nurse role handed off by Michelle Best RN mw2 19:38 Alana Pennington RN is Primary Nurse. ke1 20:01 Slava Woods MD is Pronouncing Provider. rickey 20:04 Police notified at 20:05 [address] [place] [employer] to have an officer call the Customer Service Consultant for the mw2 patient. 22:31 No provider procedures requiring assistance completed. body released. ke1 08/14 03:44 spoke to Miranda from [address] the patient left with the cardiac leads still mw2 on. The Office Machines Teacher will bring the cardiac leads back to us when he gets a chance. Administered Medications: 08/13 16:10 Drug: NS 0.9% 1000 ml Route: IV; Rate: 1 bolus; Site: left jugular; ss 17:43 Follow up: Response: No adverse reaction; IV Status: Completed infusion; IV Intake: db 1000ml 16:20 Drug: Rocephin (cefTRIAXone) 1 grams Route: IV; Rate: per protocol; Site: left jugular; ss 17:42 Follow up: Response: No adverse reaction; IV Status: Completed infusion; IV Intake: 50mldb 16:30 Drug: Pepcid (famotidine) 20 mg Route: IVP; Site: left subclavian; db 17:43 Follow up: Response: No adverse reaction db 16:47 Drug: Zosyn (piperacillin-tazobactam) 3.375 grams Route: IVPB; Infused Over: 60 mins; db Site: left subclavian; 17:42 Follow up: Response: No adverse reaction; IV Status: Completed infusion; IV Intake: db 100ml 17:00 Drug: Calcium Gluconate 1 grams Route: IVPB; Infused Over: 10 mins; Site: left db antecubital; 17:41 Follow up: Response: No adverse reaction; IV Status: Completed infusion; IV Intake: db 100ml 17:00 Drug: Albuterol - atroVENT (ipratropium) (3:1) (2.5 mg - 0.5 mg) 3 ml Route: Nebulizer; db 17:43 Follow up: Response: No adverse reaction db 17:05 Drug: Sodium Bicarbonate 1 amp Route: IVP; Site: right wrist; db 17:41 Follow up: Response: No adverse reaction db 17:05 Drug: D10 in Water [2 mL/kg] 250 ml Route: IVP; Site: left forearm; db 17:50 Follow up: Response: No adverse reaction db 17:05 Drug: Insulin Regular Human 10 units {Co-Signature: mb9 (Kailee Springer RN).} db Route: IVP; Site: right wrist; 17:50 Follow up: Response: No adverse reaction db 17:32 Drug: Sodium Bicarbonate 1 amp Route: IVP; Site: left subclavian; db 17:56 Follow up: Response: No adverse reaction db 17:50 Drug: D5W 1000 ml, Sodium Bicarbonate 150 mEq Route: IV; Rate: 100 ml/hr; Site: left db subclavian; 17:55 Drug: NS 0.9% 1000 ml Route: IV; Rate: 1 bolus; Site: right wrist; db 18:35 Drug: Zofran (Ondansetron) 4 mg Route: IVP; Site: right wrist; db 18:35 Drug: fentaNYL (PF) 25 mcg Route: IVP; Site: right antecubital; db Point of Care Testing: Blood Glucose: 15:47 Blood Glucose: 200 mg/dL; ko1 Ranges: Intake: 17:41 IV: 100ml; Total: 100ml. db 17:42 IV: 100ml; Total: 200ml. db 17:42 IV: 50ml; Total: 250ml. db 17:43 IV: 1000ml; Total: 1250ml. db Outcome: 17:42 Decision to Hospitalize by Provider. rickey 22:31 Patient : Time of 19:59 Body to home. ke1 22:31 Condition: 22:32 Patient left the ED. ke1 NIH Stroke Scale - NIH Stroke Score Date: 08/13/2022 Time: 17:12 Total Score = 3 1a. Level of Consciousness (LOC) - 0(Alert) 1b. Level of Consciousness (LOC) (Month \T\ Age) - 1(One) 1c. LOC Commands (Open \T\ Closes Eyes/Veneer Jointer) - 0(Both) 2. Best Gaze (Lateral Gaze Paresis) - 1(Partial gaze palsy) 3. Visual Field Loss - 1(Partial hemianopia) 4. Facial Palsy - 0(Normal) 5a. Left Arm: Motor (10-second hold) - 0(No drift) 5b. Right Arm: Motor (10-second hold) - 0(No drift) 6a. Left Leg: Motor (5-second hold - always test supine) - 0(No drift) 6b. Right Leg: Motor (5-second hold - always test supine) - 0(No drift) 7. Limb Ataxia (finger/nose \T\ heel/rangel - test with eyes open) - 0(Absent) 8. Sensory Loss (pinprick arms/legs/face) - 0(Normal) 9. Best Language: Aphasia (description/naming/reading) - 0(No aphasia) 10. Dysarthria (speech clarity - read or repeat words) - 0(Normal) 11. Extinction and Inattention (visual/tactile/auditory/spatial/personal) - 0(No abnormality) Initials: db Signatures: Dispatcher [employer] EDMS Slava Woods MD MD cha Smirch, Shelby, RN RN ss Brittany Triplett am2 Justa Tejeda mw2 Alana Pennington, RN RN ke1 Liv No RN RN ko1 Michelle Best RN RN Kailee Pritchett RN RN mb9 Kailee Springer RN mb9 Corrections: (The following items were deleted from the chart) 16:38 15:37 Acuity: BRE 2 ko1 ss 17:11 16:30 BP 72 / 49; Pulse 68bpm; Resp 25bpm; Pulse Ox 100% 02 15% Non-rebreather db mask; mb9 17:11 16:45 BP 54 / 38; Pulse 80bpm; Resp 24bpm; Pulse Ox 100% 02 15% Non-rebreather db mask; mb9 17:33 16:00 Neuro: Level of Consciousness is awake, unresponsive, db db 17:57 16:00 Reassessment: db db 17:57 17:57 Reassessment: Patient and/or family updated on plan of care and expected db duration. Pain level reassessed. db
--- NOTE | 2022-08-13 17:43 | EDPHYS ---
Physician Documentation [facility] Name: Michelle Garzon Age: 81 yrs Sex: Female : 1940 Arrival Date: 08/13/2022 Time: 15:25 Bed 16 Private MD: Ag Miller R ED Physician Slava Woods HPI: 08/13 17:29 This 81 yrs old Female presents to ER via Wheelchair with complaints of rickey Altered Mental Status, Blurred Vision. 17:29 The patient presents with confusion, decreased mental status, decreased responsiveness. rickey Onset: The symptoms/episode began/occurred 14 day(s) ago. Possible causes: CVA or TIA, low blood sugar, sepsis. Associated signs and symptoms: Pertinent positives: agitation, combativeness, confusion, shortness of breath. Current symptoms: In the emergency department the patient's symptoms have worsened, moderately, is more confused. Patient's baseline: Neuro: alert and fully oriented. The patient has not experienced similar symptoms in the past. Historical: - Allergies: 15:47 No Known Allergies; ko1 - PMHx: 15:47 Hyperlipidemia; Hypertension; ko1 - Immunization history:: Adult Immunizations up to date. - Social history:: Smoking status: Patient denies any tobacco usage or history of. ROS: 17:31 Constitutional: Positive for fatigue. rickey 17:31 Respiratory: Positive for cough, shortness of breath, at rest. 17:31 Neuro: Positive for altered mental status, weakness. rickey Exam: 17:31 Constitutional: The patient appears in obvious distress, moderately distressed. rickey 17:31 ENT: Mouth: Oral mucosa: dry, Posterior pharynx: Airway: normal, no evidence of obstruction, Tonsils: are normal in appearance, Uvula: normal, midline, erythema, is not appreciated. 17:31 ECG was reviewed by the Attending Physician. Vital Signs: 15:37 BP 130 / 103; Resp 24; Temp 96.7(T); Pulse Ox 97% ; Weight 49.9 kg; Height 5 ft. 4 in. ko1 (162.56 cm); 15:40 BP 119 / 102; Pulse 125; Resp 35; Temp 98.9(R); db 16:05 Temp 98.9(R); ss 16:15 BP 95 / 56; Pulse 76; Resp 27; Pulse Ox 100% on 15% Non-rebreather mask; mb9 16:20 BP 95 / 56; Pulse 71; Resp 25; ss 16:30 BP 72 / 49; Pulse 68; Resp 25; Pulse Ox 100% on 15% Non-rebreather mask; db 16:45 BP 54 / 38; Pulse 80; Resp 24; Pulse Ox 100% on 15% Non-rebreather mask; db 17:07 BP 99 / 44; Pulse 77; Resp 24; Pulse Ox 96% on 15% Non-rebreather mask; mb9 17:30 BP 70 / 48; Pulse 101; Resp 24; Pulse Ox 100% on BiPAP; db 17:45 BP 54 / 46; Pulse 90; Resp 26 S; Pulse Ox 100% on BiPAP; db 18:00 BP 49 / 35 LA Supine (auto/); Pulse 78; Resp 28; Pulse Ox 100% on BiPAP; db 18:30 BP 65 / 14; Pulse 72; Resp 20; Pulse Ox 100% on BiPAP; db 18:55 BP 58 / 28; Pulse 68; Resp 18; Pulse Ox 100% on BiPAP; db 15:37 Body Mass Index 18.88 (49.90 kg, 162.56 cm) ko1 15:40 unable to obtain O2 saturation db 16:[address] Woods db 16:[address] Woods no new order db 17:30 MAP 55 db 17:45 Map 51 db 18:[address] Woods of BP no new orders db NIH Stroke Scale Scores: 17:12 NIHSS Score: 3 db Procedures: 17:36 Peripheral line: by aseptic technique a peripheral line was placed in the left external rickey jugular vein. MDM: 15:50 Patient medically screened. rickey 17:35 Differential diagnosis: Anemia asthma, Bronchitis CHF exacerbation, Chronic Obstructive rickey Pulmonary Disease pneumonia, Pneumothorax reactive airway disease, Sepsis. Antibiotic administration: ZOSYN. Differential Diagnosis altered mental status, sepsis, flu. Differential Diagnosis: CVA, electrolyte abnormality, hypoglycemia, intracranial bleed, pneumonia, seizure, sepsis, TIA, UTI, volume depletion. Immunization status: Pneumococcal vaccine: within last 5 years. Influenza vaccine: within last 5 years. Data reviewed: vital signs, nurses notes, EMS record, lab test result(s), EKG, radiologic studies, CT scan, plain films. Consideration of Admission/Observation Patient was admitted/placed on observation. Management of patient was discussed with the following: Hospitalist: DR RANI LEVINE. I considered the following discharge prescriptions or medication management in the emergency department Medications were administered in the Emergency Department. See SEP. 20:03 ED course: Patient DNR/DNI. Patient with sinus bradycardia to asystole on telemetry. No ms3 pulses palpated, no heart sounds present, corneal reflexes absent. Time of 7:59 PM.. 08/13 15:43 Order name: Basic Metabolic Panel; Complete Time: 16:36 08/13 15:43 Order name: CBC with Diff; Complete Time: 17:10 08/13 15:43 Order name: Troponin HS; Complete Time: 16:36 08/13 15:46 Order name: Blood Culture Adult (2) db 08/13 15:46 Order name: Lactate w/ 2H reflex if indic.; Complete Time: 16:36 db 08/13 15:53 Order name: Urine Culture [facility] 08/13 15:54 Order name: COVID-19/FLU A+B; Complete Time: 17:10 [facility] 08/13 15:56 Order name: Glucose, Ancillary Testing; Complete Time: 16:36 EDNY 08/13 16:09 Order name: Lipase; Complete Time: 16:36 [facility] 08/13 16:13 Order name: ABG; Complete Time: 18:40 [facility] 08/13 16:37 Order name: Comprehensive Metabolic Panel; Complete Time: 17:42 [facility] 08/13 16:39 Order name: Manual Differential; Complete Time: 17:10 [facility] 08/13 16:54 Order name: Urine Dipstick-Ancillary; Complete Time: 16:56 [facility] 08/13 15:43 Order name: XRAY Chest (1 view); Complete Time: 17:10 08/13 17:43 Order name: BIPAP [facility] 08/13 19:39 Order name: Lactate Sepsis 2 HR Follow-up; Complete Time: 19:48 [facility] 08/13 15:43 Order name: EKG; Complete Time: 15:44 08/13 15:43 Order name: Cardiac monitoring; Complete Time: 16:06 08/13 15:43 Order name: EKG - Nurse/Tech; Complete Time: 17:22 08/13 15:43 Order name: IV Saline Lock; Complete Time: 17:22 08/13 15:43 Order name: Labs collected and sent; Complete Time: 17: 08/13 15:43 Order name: O2 Per Protocol; Complete Time: 16: 08/13 15:43 Order name: O2 Sat Monitoring; Complete Time: 16: 08/13 15:53 Order name: Urine Dipstick-Ancillary (obtain specimen); Complete Time: 17:51 [facility] 08/13 16:13 Order name: Katie; Complete Time: 17:22 [facility] EC:31 Rate is 88 beats/min. Rhythm is irregular. QRS [place] is Normal. AR interval is rickey prolonged. QRS interval is prolonged at 142 msec. QT interval is normal. No Q waves. T waves are Normal. No ST changes noted. Clinical impression: Atrial Fibrillation. Interpreted by me. Reviewed by me. Administered Medications: 16:10 Drug: NS 0.9% 1000 ml Route: IV; Rate: 1 bolus; Site: left jugular; ss 17:43 Follow up: Response: No adverse reaction; IV Status: Completed infusion; IV Intake: db 1000ml 16:20 Drug: Rocephin (cefTRIAXone) 1 grams Route: IV; Rate: per protocol; Site: left jugular; ss 17:42 Follow up: Response: No adverse reaction; IV Status: Completed infusion; IV Intake: 50mldb 16:30 Drug: Pepcid (famotidine) 20 mg Route: IVP; Site: left subclavian; db 17:43 Follow up: Response: No adverse reaction db 16:47 Drug: Zosyn (piperacillin-tazobactam) 3.375 grams Route: IVPB; Infused Over: 60 mins; db Site: left subclavian; 17:42 Follow up: Response: No adverse reaction; IV Status: Completed infusion; IV Intake: db 100ml 17:00 Drug: Calcium Gluconate 1 grams Route: IVPB; Infused Over: 10 mins; Site: left db antecubital; 17:41 Follow up: Response: No adverse reaction; IV Status: Completed infusion; IV Intake: db 100ml 17:00 Drug: Albuterol - atroVENT (ipratropium) (3:1) (2.5 mg - 0.5 mg) 3 ml Route: Nebulizer; db 17:43 Follow up: Response: No adverse reaction db 17:05 Drug: Sodium Bicarbonate 1 amp Route: IVP; Site: right wrist; db 17:41 Follow up: Response: No adverse reaction db 17:05 Drug: D10 in Water [2 mL/kg] 250 ml Route: IVP; Site: left forearm; db 17:50 Follow up: Response: No adverse reaction db 17:05 Drug: Insulin Regular Human 10 units {Co-Signature: mb9 (Kailee Springer RN).} db Route: IVP; Site: right wrist; 17:50 Follow up: Response: No adverse reaction db 17:32 Drug: Sodium Bicarbonate 1 amp Route: IVP; Site: left subclavian; db 17:56 Follow up: Response: No adverse reaction db 17:50 Drug: D5W 1000 ml, Sodium Bicarbonate 150 mEq Route: IV; Rate: 100 ml/hr; Site: left db subclavian; 17:55 Drug: NS 0.9% 1000 ml Route: IV; Rate: 1 bolus; Site: right wrist; db 18:35 Drug: Zofran (Ondansetron) 4 mg Route: IVP; Site: right wrist; db 18:35 Drug: fentaNYL (PF) 25 mcg Route: IVP; Site: right antecubital; db Point of Care Testing: Blood Glucose: 15:47 Blood Glucose: 200 mg/dL; ko1 Ranges: Critical Glucose Levels:Adult <50 mg/dl or >400 mg/dl <40 mg/dl or >180 mg/dl Disposition: 17:37 Critical Care:. rickey Disposition Summary: 08/13/22 20:06 Patient Location: Home(08/13/22 20:06) rickey Pronouncing Physician: Slava Woods cha Time of : 19:59 08/13/2022 rickey Diagnosis - Acidosis - metabolic(08/13/22 20:06) rickey - Hypotension, unspecified(08/13/22 20:06) rickey - Severe sepsis without septic shock rickey - Hyperkalemia(08/13/22 20:06) rickey - Do not resuscitate rickey - Acute and chronic respiratory failure with hypercapnia rickey - COPD/ Chronic obstructive pulmonary disease, unspecified rickey - Elevated white blood cell count rickey - Bandemia(08/13/22 20:06) rickey Critical care time excluding procedures: 17:37 Critical care time: Bedside Care: 45 minutes, Consultation: 15 minutes, Family rickey Intervention: 15 minutes. Total time: 75 minutes NIH Stroke Scale - NIH Stroke Score Date: 08/13/2022 Time: 17:12 Total Score = 3 1a. Level of Consciousness (LOC) - 0(Alert) 1b. Level of Consciousness (LOC) (Month \T\ Age) - 1(One) 1c. LOC Commands (Open \T\ Closes Eyes/Mixer Operator Hot Metal) - 0(Both) 2. Best Gaze (Lateral Gaze Paresis) - 1(Partial gaze palsy) 3. Visual Field Loss - 1(Partial hemianopia) 4. Facial Palsy - 0(Normal) 5a. Left Arm: Motor (10-second hold) - 0(No drift) 5b. Right Arm: Motor (10-second hold) - 0(No drift) 6a. Left Leg: Motor (5-second hold - always test supine) - 0(No drift) 6b. Right Leg: Motor (5-second hold - always test supine) - 0(No drift) 7. Limb Ataxia (finger/nose \T\ heel/rangel - test with eyes open) - 0(Absent) 8. Sensory Loss (pinprick arms/legs/face) - 0(Normal) 9. Best Language: Aphasia (description/naming/reading) - 0(No aphasia) 10. Dysarthria (speech clarity - read or repeat words) - 0(Normal) 11. Extinction and Inattention (visual/tactile/auditory/spatial/personal) - 0(No abnormality) Initials: db Signatures: Dispatcher [employer] EDNY Adalgisa Yoon RN RN dw Anderson, Corey, MD MD cha Smirch, Shelby, RN Shawn Rodrigues DO DO ms3 Liv No, RN RN ko1 Michelle Best, RN RN Tamie Mata, PA-C PA-C jose [email or web address] Kailee Springer RN mb9 Corrections: (The following items were deleted from the chart) 16:09 15:54 LIPASE+C.LAB.BRZ ordered. EDNY EDNY 19:08 17:42 Telemetry/MedSurg (Inpatient) rickey dw 19:08 17:42 rickey dw 20:01 17:42 Inpatient Admission rickey rickey 20:01 17:42 La Jackson rickey rickey 20:01 17:42 Critical rickey rickey 20:01 17:42 new rickey rickey 20:01 17:42 are unchanged rickey rickey 20:01 17:42 Standard rickey rickey 20:01 17:42 Acidosis - METABOLIC rickey rickey 20:01 17:42 Hyperkalemia rickey rickey 20:01 17:42 Severe sepsis with septic shock rickey rickey 20:01 17:42 COPD/ Chronic obstructive pulmonary disease with (acute) exacerbation rickey irckey 20:01 17:[address] elevation CA rickey rickey 20:01 17:42 Bandemia rickey rickey 20:01 18:20 Hypotension, unspecified rickey rickey 20:01 19:08 [facility] ER HOLD dw rickey 20:01 19:08 ERHOLD- dw rickey 21:47 15:58 Head C Spine Cap Wo Con+CT.RAD.BRZ ordered. EDMS EDMS
[2022-08-13] MEDS ORDERED: ONDANSETRON 4 MG/2 ML VIAL ONE (18:37)
[2022-08-13] MEDS ORDERED: FENTANYL CITR 100 MCG/2 ML ONE (18:37)
[2022-08-13 23:17] VITALS: TEMP 98.9
[2022-08-13 23:25] VITALS: O2SAT 100
[2022-08-13 23:30] VITALS: BP 58/28
== END 2022-08-13 22:32 | disposition expired ==
LOC: ER 15:24
DX: J96.22 Acute and chronic respiratory failure with hypercapnia (principal); R65.20 Severe sepsis without septic shock; E87.20 Acidosis, unspecified; I95.9 Hypotension, unspecified; E87.5 Hyperkalemia; D72.825 Bandemia; J44.9 Chronic obstructive pulmonary disease, unspecified; Z66 Do not resuscitate; E78.5 Hyperlipidemia, unspecified; I10 Essential (primary) hypertension; Z20.822 Contact with and (suspected) exposure to COVID-19
CPT/HCPCS: 93005; 87040 ×2; 87088; 85025; 87086; 80048; 36415; 82947; 83605 ×2; 81003; 84484; 83690; 80053; 0240U; 71045; 94640; 82805; 94660; 51702; 99291; 99292; J1815; J2543; J7613; J7644; J3010; J0610; J7030 ×2; J2405